=== PATIENT | female | born 1990 | race Caucasian/White ===

== ENCOUNTER 2017-03-24 18:45 | Emergency (ER) | payer MEDICAID ==
[~2017-03-24] VITALS: Ht 147.3 cm; Wt 133.8 kg
[~2017-03-24 18:45] MED LIST: AMOXICOT500 MG PO; FERROUS SULFAT324 MG PO; IBUPROFEN800 MG PO; LORATADINE 10MG10 M1 PO; MOTRIN 400MG.400 MG PO; MOTRIN400 MG PO; NORCO 325 MG-51 TAB PO; PERCOCET 5/3251 EACH PO; PRENATAL PLUS1 TA1 PO; PULMICORT180 MCG/AC IH; RANITIDINE HCL150 MG PO; VENTOLIN H0.09 MG/Ac IH; ZANTAC 150150 MG PO; ZITHROMAX Z PA250 MG PO; ZOFRAN ODT4 MG PO; ZOFRAN ODT8 MG PO
--- NOTE | 2017-03-24 19:24 | [facility] Report ---
History of Present Issue Date/Time Seen by Provider 03/24/171918 Visit Reason Pt arrived:Walked Presenting Problem:PT C/O RIGHT UPPER QUAD PAIN THAT GOES DOWN INTO HER RIBS, ADVISES SHE WAS SEEN EARLIER THIS WEEK AND HAD LABS WHICH WERE NORMAL. PT ADVISES SHE WAS SUPPOSE TO HAVE GB US YESTERDAY AND DIDN'T GO Location if Accident: Onset of symptoms date/time:/ or onset unknown for:MEDICAL HX UNKNOWN Have you (or family members/close friends) recently traveled outside the [place]? N If Yes, where/when: Have you had exposure to infectious disease within the past month? TB? Other? Specify: Source patient, RN notes reviewed Exam Limitations no limitations Comment 26-year-old female presents for RIGHT upper quadrant pain. Patient states she seen her PCP on Sunday and per her all labs were normal. She states she was scheduled for a gallbladder ultrasound yesterday but had to miss the appointment because she didn't have a ride or gas money to get the appointment. Patient states she was supposed to work today was unable to go to work due to RIGHT quadrant pain. Patient states she also is a week late on her menstrual cycle. Patient reports having "hot flashes", denies nausea or vomiting ALLERGIES Coded Allergies: Penicillins (Severe, I-HIVES 02/20/16) Home Medications Reported Medications Albuterol Sulfate (Ventolin Hfa) 0.09 MG IH DAILY #18 Budesonide (Pulmicort 180MCG Flexhaler) 1 PUFF IH DAILY #1 Loratadine (Loratadine 10MG Tablet) 10 MG PO DAILY History Medical History General CAD? No Angina: No AK: No Hypertension? No Hyperlipidemia? No CHF? No DVT? No PE? No COPD? No Asthma? Yes Anemia? No GERD? No Gastric ulcers? No GI Bleed? No Hernia? No Thyroid Problems? No Hypothyroidism? No CVA? No Seizures? No Diabetes? No Renal Insuffiency? No UTI? No Stones? No BPH? No GB Disease: No Nephritic Syndrome? No Asplenia? No Hepatitis? No Sickle Cell Disease? No Arthritis? No Migraines? No Cataracts? No Glaucoma? No MRSA? No HIV? No TB? No Anxiety? No Depression? No Cancer? No Site: N More? No Immunization HX DT/Tetanus 06/10/2015 Flu 2014-FSN Pneumonia Refuses Surgical Hx Previous Surgery?Y DENTAL ROOT CANAL TUBAL Social History Smoking Hx Smoker: Never Smoker Tobacco: No Packs/day N/A Alcohol Alcohol: No Review of Systems All Other Systems Reviewed and Negative Gastrointestinal see HPI, abdominal pain Physical Exam Vital Signs Vital Signs Date Time Temp Pulse Resp B/P Pulse O2 O2 Flow FiO2 Ox Delivery Rate 03/24 1901 98.4 87 16 130/70 98 - WBC >12,000 or <4,000 or 10% bands? 2 or more SIRS Criteria Met? B/P:130/70 MAP:90 Creatinine >2.0? UA output<0.5ml/kg/hr for 2 hrs? Platelet count >100,000? Lactate >2.0mmol/1? INR >1.2 or PTT > than 60 sec? Evidence of Organ Dysfunction? Provider documented clinical suspician of infection? Sepsis Criteria Count: 0 Sepsis Risk: General Appearance normal appearance, no apparent distress Eye Exam - bilateral eye normal exam, bilateral eye PERRL, bilateral eye EOMI Ear, Nose, Throat hearing grossly normal, normal ENT inspection, normal pharynx Neck normal inspection, full range of motion Respiratory Status Yes: trachea midline, chest symmetrical, non tender chest. No: respiratory distress. Lung Sounds bilateral: normal breath sounds, lungs clear. Cardiovascular normal exam, regular rate/rhythm, no peripheral edema, normal peripheral pulses Gastrointestinal normal bowel sounds, normal exam, soft, tenderness, Olea sign positive Neurologic alert, normal exam, oriented x 3 Medical Decision Making LABS/Meds/Orders Pt receiving controlled substance in ED? No Results/Orders Laboratory Tests 03/24/171999: Sodium 140, Potassium 3.7, Chloride 107, Carbon Dioxide 27, BUN 8, Creatinine 1.0, Estimated Creat Clear 183, Estimated GFR (MDRD) 68, Glucose 93, Calcium 8.4 L, Total Bilirubin 0.2, AST 31, ALT 58, Alkaline Phosphatase 77, Total Protein 7.6, Albumin 3.5, Globulin 4.1 H, Albumin/Globulin Ratio 0.9 L, Amylase 60, Lipase 195, WBC 5.1, RBC 5.02, Hgb 13.6, Hct 42.9, MCV 85.4, RDW 13.1, Plt Count 272, MPV 7.6, Gran % 52.2, Gran # 2.7, Lymphocytes % 31.9, Monocytes % 8.0, Eosinophils % 7.0, Basophils % 0.9, Lymphocytes # 1.6, Monocytes # 0.4, Eosinophils # 0.4, Basophils # 0.1, PUBS MCHC 31.6 L, MCH 27.0 03/24/171916: Urine Color YELLOW, Urine Appearance Clear, Urine pH 6.0, Ur Specific [place] > 1.030 H, Urine Protein NEGATIVE, Urine Ketones NEGATIVE, Urine Blood 2+ H, Urine Nitrate NEGATIVE, Urine Bilirubin NEGATIVE, Urine Urobilinogen 0.2, Ur Leukocyte Esterase NEGATIVE, Urine Glucose NEGATIVE, Urine Test NEGATIVE Orders Procedure Date/time Status [facility] URINE 03/24 1917 Complete UTC URINE DIPSTICK 03/24 1917 Complete LIPASE 03/24 1917 Complete CBC WITH AUTO DIFF 03/24 1917 Complete CHEM 12 PROFILE 03/24 1917 Complete AMYLASE 03/24 1917 Complete Consult MD Physician Consult Consult/PCP [email or web address] Time Called 1922 Reason Pt. Condition Comments Recommend complete blood count, complete metabolic panel amylase and lipase. If these are elevated then transferred to the ER for a ct scan scan Departure Departure Time of Disposition 2041 Disposition DC Home or Self Care(routine) Clinical Impression Primary Impression: Abdominal pain Qualifiers: Abdominal location: right upper quadrant Qualified Code: R10.11 - Right upper quadrant pain Condition STABLE Referrals KEVIN PITTMAN (Family) Patient Instructions Acute Abdominal Pain, DI for Abdominal Pain-Adult Additional Instructions Follow-up with PCP this week Call reschedule gallbladder ultrasound Stay away from greasy, spicy, or fatty foods Symptoms worsen or do not improve return or be seen in the ER Discharge Counseling Counseled pt/family regarding diagnosis, test results, medications/RX, home care, follow up needs at 204
[2017-03-24 19:44] LABS: UTC URINE PREGNANCY NEGATIVE (NEG)
[2017-03-24 19:45] LABS: URINE BILIRUBIN - DIPSTICK NEGATIVE (NEG); URINE BLOOD 2+ (NEG)
[2017-03-24 20:11] LABS: HEMOGLOBIN 13.6 g/dL (12.2-16.2); LYMPH # 1.6 K/mm3 (0.7-4.5); LYMPH % 31.9 % (10-50.0)
[2017-03-24 20:48] VITALS: BP 130/70
--- OUTSIDE RECORDS SUMMARY | 2017-03-25 05:26 | External Medical Summary Rpt | CCD ---
Author Author , STEPHANIE Organization [facility] Address Unknown Phone [email or web address] Care Team Providers Care Fitter And Turner Name Role Phone HARLEY SOUZA Unavailable Unavailable TALBOT INDY, Unavailable Unavailable TALBOT INDY MADRID ENA, MADRID Unavailable Unavailable ENA MADRID ENA, MADRID Unavailable Unavailable ENA [facility] Unavailable Unavailable [place], [facility] Unavailable Unavailable [place], [facility] Unavailable Unavailable [facility], Unavailable Unavailable NAUN Y[id number], Unavailable Unavailable [id number] CHRISTINA GREENE CHRISTINA JAM Unavailable Unavailable CHRISTINA JC, CHRISTINA JAM Unavailable Unavailable CHRISTINA GREENE CHRISTINA JAM Unavailable Unavailable PETAR VASQUEZ, Unavailable Unavailable PETAR VASQUEZ HOWELL M, Unavailable Unavailable SILVER TAM MD, Unavailable Unavailable GINNY RAMIREZ LIZ, JAMES LIZ Unavailable Unavailable JAMES LARSEN Unavailable Unavailable HARPEL KENDELL, HARPEL Unavailable Unavailable KENDELL HARPEL KENDELL, HARPEL Unavailable Unavailable KENDELL [facility] Un[facility] Un[facility], [facility], Unavailable Unavailable [facility] KALFAS MIN, KALFAS Unavailable Unavailable MIN KALFAS, SUSANNA C, Unavailable Unavailable KALFAS, SUSANNA C [facility] Unavailable Unavailable [facility], [facility] CHRISSIE JR, CHRISSIE JR Unavailable Unavailable FRANK CHRISSIE, Unavailable Unavailable FRANK CHRISSIE FRANK CHRISSIE NIEVES, Unavailable Unavailable FRANK CHRISSIE NIEVES [facility], Unavailable [facility]available [facility] Unavailable Unavailable LAB, [facility] Unavailable Unavailable [facility], [facility] Unavailable [facility]available [facility], [facility] Un[facility] AUDELIA KATERYNA, AUDELIA KATERYNA Unavailable Unavailable [facility], Unavailable Unavailable [facility] PICKLESIMER JR SUELLEN, Unavailable Unavailable PICKLESIMER JR SUELLEN RENUSCH, RENUSCH Unavailable Unavailable RENUSCH CHUCK, RENUSCH Unavailable Unavailable CHUCK [id number], Unavailable Unavailable [id number] SCHACK JF, SCHACK Unavailable Unavailable JF SCHACK JF, SCHACK Unavailable Unavailable JF SCHACK, MABEL, Unavailable Unavailable SCHACK, MABEL TOYA, TOYA Unavailable Unavailable TOYA SHASHANK, TOYA Unavailable Unavailable SHASHANK TOYA SHASHANK, TOYA Unavailable Unavailable SHASHANK KEVIN PITTMAN G, Unavailable Unavailable KEVIN PITTMAN [facility], Unavailable Unavailable [facility] Unavailable [facility]available Unavailable PHOTOGR[employer]IC [facility], 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available Unavailable [facility], [facility] Unavailable Unavailable [facility]ICIANS, [facility] THI VALLE, THI Unavailable Unavailable LEONARD PALACIOS, Unavailable Unavailable LIDIA WALKER, Unavailable Unavailable LIDIA MICHAEL [facility] Unavailable Unavailable #5, [facility] Purpose Continuity of Care Document - 07-22-2007 through 2016 Problems Code Diagnosis DOS Provider Status [id number] OTH SPEC 02-02-2017 ST BACTERIAL STEVEN AGNT CAUSE PHYSICIANS DZ CLASSIFIED ELSW [id number] MIGRAINE 02-02-2017 ST W/O AURA STEVEN NOT INTRACT PHYSICIANS W/O STAT MIGRAIN J0190 ACUTE 02-02-2017 ST SINUSITIS STEVEN UNSPECIFIED PHYSICIANS Z6841 BODY MASS 02-02-2017 ST INDEX BMI STEVEN 40.0-44.9 PHYSICIANS ADULT N912 AMENORRHEA 11-21-2016 [facility] R05 COUGH 10-15-2016 [facility] R0602 SHORTNESS 10-15-2016 [facility] OF BREATH PHYSICIANS, [facility] B349 VIRAL 06-14-2016 ST INFECTION [facility] UNSPECIFIED PHYSICIANS R1013 EPIGASTRIC 06-14-2016 ST PAIN [facility] PHYSICIANS J020 STREPTOCOCC 05-03-2016 [facility] J0300 ACUTE 05-03-2016 [facility]RE[facility] TONSILLITIS UNSPECIFIED H6693 OTITIS 02-20-2016 [facility] MEDIA [facility], UNSPECIFIED PLLC BILATERAL J0100 ACUTE 02-20-2016 [facility] MAXILLARY [facility], SINUSITIS PLLC UNSPECIFIED K027 DENTAL ROOT 02-20-2016 [facility] CARIES [facility] H5203 HYPERMETROP 12-29-2015 CHRISTINA GREENE IA BILATERAL J4520 MILD 10-15-2015 INTERMITTEN STEVEN T ASTHMA PHYSICIANS UNCOMPLICAT ED N390 URINARY 10-15-2015 ST TRACT [facility] INFECTION PHYSICIANS SITE NOT SPECIFIED R300 DYSURIA 10-15-2015 ST STEVEN PHYSICIANS N3001 ACUTE 10-06-2015 CYSTITIS [place] WITH PHYSICIANS HEMATURIA O3421 MATERNAL 06-07-2015 [facility] CARE SCAR PHYSICIANS PREVIOUS GROUP DELIVERY O655 OBSTRUCTED 06-07-2015 [facility] ABNORMAL INC MAT PELVIC ORGANS Z302 ENCOUNTER 06-07-2015 [facility] FOR PHYSICIANS STERJAMES GROUP ON Z370 SINGLE LIVE 06-07-2015 [facility] Z3A39 39 WEEKS 06-07-2015 [facility] GESTATION PHYSICIANS OF GROUP Z3480 ENC 05-27-2015 [facility] SUPERVISION PHYSICIANS OT NORMAL GROUP PREG UNS TRIMESTER Y31414 OTHER SPEC 05-22-2015 [facility] RELATED INC COND 3RD TRIMESTER O4703 FALSE LABOR 05-22-2015 GINNY Hung BEFORE 37 LILLIE MAC CMPLETE WEEKS GEST 3RD TRI Z3A37 37 WEEKS 05-22-2015 [facility] GESTATION [facility] OF INC X35382 OTHER ACUTE 05-11-2015 STEVEN NONSUPPURAT PHYSICIANS MELINA OTITIS MEDIA RT EAR J029 ACUTE 05-11-2015 ST PHARYNGITIS STEVEN PHYSICIANS UNSPECIFIED O6003 05-03-2015 [facility] LABOR PHYSICIANS WITHOUT GROUP DELIVERY THIRD TRIMESTER Z3A34 34 WEEKS 05-03-2015 [facility] OF INC P94930 ABNORMAL 04-30-2015 [facility] GLUCOSE PHYSICIANS COMPLICATIN GROUP G [id number] MATERNAL 04-26-2015 [facility] CARE EXCESS PHYSICIANS GROUP GROWTH 3RD TRI NA/UNS [id number] DECREASED 04-22-2015 [facility] MOVEMENTS INC THIRD TRIMESTER NA/UNS O4702 FALSE LABOR 04-22-2015 GINNY Hung BEFORE 37 LILLIE MAC CMPLETE WEEKS GEST 2ND TRI Z3A33 33 WEEKS 04-22-2015 [facility] OF INC V221 SUPERVISION 02-02-2015 [place] OF OTHER MEDICAL NORMAL [facility]ING ASS 70337 OTHER 12-08-2014 [facility] SPECIFED PHYSICIANS COMPLICATIO GROUP N ANTEPARTUM 4610 ACUTE 11-25-2014 ST MAXILLARY STEVEN SINUSITIS PHYSICIANS V222 11-25-2014 STATE, STEVEN INCIDENTAL PHYSICIANS V745 SCREENING 11-24-2014 [facility]ATION [facility] FOR VENEREAL DISEASE V2502 GENERAL 05-28-2014 [facility] CNSL PHYSICIANS INITIATION GROUP OTH CONTRACEPT MEASURES V2509 OT GENERAL 05-28-2014 [facility] PHYSICIANS CNSL&ADVICE GROUP CONTRACEPT MANAGEMENT V2542 SURVEILLANC 05-28-2014 [facility] E PREV PRSC PHYSICIANS INTRAUTERN GROUP CNTRACPT DEVC 33192 OBESITY, 05-19-2014 ST UNSPECIFIED STEVEN MED 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 [address] 1121 CANDIDIASIS 05-11-2014 ST OF VULVA STEVEN AND VAGINA PHYSICIANS 3829 UNSPECIFIED 05-11-2014 ST OTITIS [facility] MEDIA PHYSICIANS 4739 UNSPECIFIED 05-11-2014 ST SINUSITIS STEVEN PHYSICIANS 4779 ALLERGIC 05-11-2014 ST RHINITIS STEVEN CAUSE PHYSICIANS UNSPECIFIED 22149 ESOPHAGEAL 05-11-2014 ST REFLUX STEVEN PHYSICIANS 82504 MATERNAL 11-05-2013 [facility] MENTAL D/O COND/COMPLI CATION V2511 ENC FOR 10-10-2013 [facility] E[facility] INSERTION INTRAUTERIN E CONTRACEPT DEVICE 46422 PREV C/S 08-29-2013 [facility] DELIV [facility]IV [facility] W/WO INC MENTION ANTPRTM COND 41198 C/S DELIV 08-29-2013 HARPEL KENDELL W/O INDICAT DELIV W/WO ANTPRTM COND V270 OUTCOME OF 08-29-2013 [facility] DELIVERY [facility] SINGLE INC LIVEBORN 82287 THREATENED 08-20-2013 [facility] PREMATURE [facility] LABOR INC ANTEPARTUM 55153 EXCESS 08-12-2013 [facility] E[facility] GROWTH AFFECT MGMT MOTH ANTPRTM 44435 OTHER 08-05-2013 HARPEL KENDELL THREATENED LABOR, ANTEPARTUM 40469 ABNORMAL 07-11-2013 [facility] E[facility] MATERNAL GLUCOSE TOLERANCE ANTEPARTUM 87453 THREATENED 07-10-2013 [facility] PREMATURE CO LABOR AMBULANCE UNSPEC TAXIN EPIS CARE V283 ENCOUNTER 04-17-2013 J[facility] SUTHERLAND ROUTINE SCREEN MALFORMATIO N ULTRASONIC 19418 UNSPECIFIED 03-26-2013 [facility] SUTHERLAND VAGINITIS AND VULVOVAGINI TIS V242 ROUTINE 02-05-2012 PATHOLOGY & CYTOLOGY FOLLOW-UP LAB 01993 FETOPELVIC 01-02-2012 [facility] DISPROPORTI [facility] ON, INC DELIVERED 86370 OBSTRUCTION 01-02-2012 [facility] BY [facility] PELVIS INC DURING L&D DELIVERED 92405 UNSPECIFIED 01-02-2012 COMMUNITY FAILED ANESTH OF TRIAL OF THE BLUE LABOR DELIVERED 31301 OTHER AND 01-02-2012 [facility] UNSPECIFIED [facility] UTERINE INC INERTIA W/DELIVERY 01774 DECR 12-31-2011 [facility] ENA MOVMNTS MGMT MOTH ANTPRTM COND/COMP V220 SUPERVISION 12-08-2011 COMBINED OF NORMAL PHYSICIANS FIRST LA 6268 OTH D/O 08-01-2011 RAMIREZ LIZ MENSTRUATIO N&OTH ABN BLEED FE GNT TRACT 18862 UNSPEC 08-01-2011 [facility] HEMORRHAGE [facility] EARLY INC ANTEPARTUM 4659 ACUTE URIS 07-12-2011 TOYA SHASHANK OF UNSPECIFIED SITE 98529 UNSPECIFIED 07-12-2011 TOYA SHASHANK CONSTIPATIO N 36589 NAUSEA 07-04-2011 SCHACK JF ALONE V7231 ROUTINE 06-28-2011 PATHOLOGY & GYNECOLOGIC CYTOLOGY AL LAB EXAMINATION 5368 DYSPEPSIA&O 06-19-2011 TOYA SHASHANK THER SPEC DISORDERS FUNCTION STOMACH 6260 ABSENCE OF 06-13-2011 SCHACK JF MENSTRUATIO N 2859 UNSPECIFIED 05-24-2011 [place] [address] OTHER 05-24-2011 ST MALAISE AND STEVEN [facility] V2501 GENERAL 05-24-2011 TOYA SHASHANK COUNSELING PRESCRIPTIO N ORAL CONTRACEPTS 5693 HEMORRHAGE 04-14-2011 TOYA SHASHANK OF RECTUM AND ANUS 10256 URINARY 04-14-2011 TOYA SHASHANK FREQUENCY V0489 NEED PROPH 01-05-2011 ST VACCINATION STEVEN &INOCULAT PHYSICIANS OT VIRAL DZ V741 SCREENING 11-04-2010 [facility] EXAMINATION [facility] P[facility]MON[facility] TUBERCULOSI S 4619 ACUTE 09-01-2010 ST SINUSITIS, STEVEN UNSPECIFIED PHYSICIANS 81820 ABDOMINAL 09-01-2010 ST PAIN, STEVEN UNSPECIFIED PHYSICIANS SITE 6235 LEUKORRHEA 06-15-2010 NOT [place] SPECIFIED PHYSICIANS INFECTIVE V202 ROUTINE 06-15-2010 INFANT OR [place] CHILD PHYSICIANS HEALTH CHECK 6264 IRREGULAR 04-19-2010 MENSTRUAL [place] CYCLE PHYSICIANS 7881 DYSURIA 04-19-2010 [facility] PHYSICIANS 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 3670 HYPERMETROP 12-08-2009 NNEKA VASQUEZ 6829 CELLULITIS 09-09-2009 [facility] OF GROUP UNSPECIFIED SITE 5990 URINARY 08-04-2009 TRACT [place] INFECTION PHYSICIANS SITE NOT SPECIFIED 4871 INFLUENZA 03-10-2009 PATIENT WITH OTHER FIRST PHYS RESPIRATORY MANIFESTATI ONS 7099 UNSPECIFIED 08-19-2008 PATIENT DISORDER FIRST PHYS OF SKIN&SUBCUT ANEOUS TISSUE V0389 NEED PROPH 01-10-2008 PATIENT VACC FIRST PHYS AGAINST OTH SPEC VACC 35503 ASTHMA 10-24-2007 PATIENT UNSPECIFIED FIRST PHYS WITH EXACERBATIO N 0340 STREPTOCOCC 09-09-2007 PATIENT AL SORE FIRST PHYS THROAT 26004 UNSPECIFIED 07-22-2007 PATIENT VIRAL FIRST PHYS INFECTION IN CCE & UNS SITE Medications Na ND Rx Da Fi Fi Am Da Di Ph RX Ph St me C No te ll ll ou ys ag ar # ys at rm s nt no ma ic us Or Da si cy ia de te s n re d CE 16 08 09 30 30 00 TO Ac TI 71 -2 -2 .0 00 TA ti RI 40 5- 9- 00 00 L ve ZI 27 20 20 96 CA NE 10 17 17 00 RE 3 31 HC PH L AR 10 MA CY MG #5 TA BL ET AM 66 08 09 20 10 00 TO Ac OX 68 -2 -2 .0 00 TA ti -C 51 5- 9- 00 00 L ve LA 00 20 20 96 CA V 10 17 17 00 RE 87 0 32 5- PH 12 AR 5 MA MG CY TA #5 BL ET LA 00 08 09 60 30 00 TO Ac OP 60 -2 -2 .0 00 TA ti RA 35 5- 9- 00 00 L ve NO 48 20 20 96 CA LO 23 17 17 00 RE L 2 36 10 PH AR MG MA CY TA BL #5 ET FL 16 08 09 1. 1 00 TO Ac UC 71 -0 -0 00 00 TA ti ON 40 8- 8- 0 00 L ve AZ 69 20 20 95 CA OL 21 17 17 83 RE E 1 16 15 PH 0 AR MG MA CY TA BL #5 ET LO 16 08 09 30 30 00 TO RA 71 -0 -0 .0 00 TA ti TA 40 8- 8- 00 00 L ve DI 48 20 20 92 CA NE 20 17 17 86 RE 3 03 10 PH AR MG MA CY TA BL #5 ET FL 16 06 07 1. 1 00 TO [facility] 71 -2 -2 00 00 TA ti ON 40 6- 8- 0 00 L ve AZ 69 20 20 95 CA OL 21 17 17 43 RE E 1 58 15 PH 0 AR MG MA CY TA BL #5 ET VE 00 04 05 18 25 00 TO NT 17 -2 -2 .0 00 TA ti OL 30 4- 6- 00 00 L ve IN 68 20 20 91 CA 22 17 17 46 RE HF 0 85 A PH 90 AR MA MC CY G IN #5 CLEMENTS LE R PU 00 04 05 1. 31 00 TO LM 18 -2 -2 00 00 TA ti IC 60 4- 6- 0 00 L ve OR 91 20 20 91 CA T 61 17 17 46 RE 18 2 87 0 PH MC AR G MA FL CY EX CLEMENTS #5 LE R LO 16 04 05 30 30 00 TO [facility] 71 -2 -2 .0 00 TA ti TA 40 4- 6- 00 00 L ve DI 48 20 20 92 CA NE 20 17 17 86 RE 3 03 10 PH AR MG MA CY TA BL #5 ET FL 16 02 03 1. 1 00 TO [facility] 71 -1 -1 00 00 TA ti ON 40 5- 7- 0 00 L ve AZ 69 20 20 94 CA OL 21 17 17 16 RE E 1 25 15 PH 0 AR MG MA CY TA BL #5 ET RA 53 01 02 60 30 00 TO NI 74 -0 -1 .0 00 TA ti TI 60 5- 0- 00 00 L ve DI 25 20 20 93 CA NE 31 17 17 75 RE 0 80 15 PH 0 AR MG MA CY TA BL #5 ET FL 16 12 01 2. 2 00 TO UC 71 -2 -2 00 00 TA ti ON 40 0- 0- 0 00 L ve AZ 69 20 20 93 CA OL 21 16 17 61 RE E 1 08 15 PH 0 AR MG MA CY TA BL #5 ET 00 01 09 11 28 28 75 SC Ac 43 -0 -2 .0 21 CLEMENTS ti 00 5- 0- 00 46 FE ve 53 20 20 R 01 11 11 AR 4 CH AE L G 00 08 08 0 14 7 77 SC Ac 14 -3 -3 .0 25 CLEMENTS ti 31 0- 0- 00 00 CK ve 47 20 20 31 11 11 BR 0 IA N 00 01 08 11 28 28 75 SC Ac 43 -0 -2 .0 21 CLEMENTS ti 00 46 FE ve 53 20 20 R 01 11 11 AR 4 CH AE L G LO 51 05 08 3 90 90 76 SC Ac RA 66 -0 -2 .0 33 CLEMENTS ti TA 00 18 FE ve DI 52 20 20 R NE 60 11 11 AR 5 CH 10 AE L MG G TA BL ET 00 07 11 28 28 75 SC Ac 43 -0 -2 .0 21 CLEMENTS ti 00 46 FE ve 53 20 20 R 01 11 11 AR 4 CH AE L G ME 50 07 07 0 14 7 76 SC Ac TR 11 -2 -2 .0 98 CLEMENTS ti ON 10 26 FE ve ID 33 20 20 R AZ 40 11 11 AR OL 1 CH E AE 50 L 0 G MG TA BL ET FL 00 07 07 0 1. 1 76 SC Ac UC 17 -2 -2 00 98 CLEMENTS ti ON 25 8- 0 27 FE ve AZ 41 20 20 R OL 21 11 11 AR E 1 CH 15 AE 0 L MG G TA BL ET 00 01 06 11 28 28 75 SC Ac 43 -0 -2 .0 21 CLEMENTS ti 00 46 FE ve 53 20 20 R 01 11 11 AR 4 CH AE L G FL 00 05 05 6 16 30 76 SC Ac UT 05 -0 -0 .0 33 CLEMENTS ti IC 43 17 FE ve 27 20 20 R ON 09 11 11 AR E 9 CH LA AE OP L G 50 MC G SP RA Y LO 51 05 05 3 90 90 76 SC Ac RA 66 -0 -0 .0 33 CLEMENTS ti TA 00 18 FE ve DI 52 20 20 R NE 60 11 11 AR 5 CH 10 AE L MG G TA BL ET AZ 59 05 05 0 6. 5 76 SC Ac IT 76 -0 -0 00 33 CLEMENTS ti HR 23 9- 9- 0 19 FE ve OM 06 20 20 R YC 00 11 11 AR IN 1 CH AE 25 L 0 G MG TA BL ET 00 01 04 11 28 28 75 SC Ac 43 -0 -1 .0 21 CLEMENTS ti 00 5 46 FE ve 53 20 20 R 01 11 11 AR 4 CH AE L G FL 00 04 04 0 1. 1 76 SC Ac UC 17 -0 -0 00 05 CLEMENTS ti ON 25 5- 5- 0 20 CK ve AZ 41 20 20 OL 21 11 11 BR E 1 IA 15 N 0 MG TA BL ET HOFFMANN 00 03 03 0 14 14 75 KLEVER Ac LF 60 -2 -2 .0 95 CLEMENTS ti AM 35 - 00 04 NA ve ET 78 20 20 N HO 02 11 11 PE XA 1 RR ZO Y LE K -T MP SS TA BL ET 00 01 03 11 28 28 75 SC Ac 43 -0 -1 .0 21 CLEMENTS ti 00 46 FE ve 53 20 20 R 01 11 11 AR 4 CH AE L G 00 01 02 11 28 28 75 SC Ac 43 -0 -1 .0 21 CLEMENTS ti 00 46 FE ve 53 20 20 R 01 11 11 AR 4 CH AE L G FL 00 01 01 0 1. 1 75 SC Ac UC 17 -0 -0 00 21 CLEMENTS ti ON 25 5- 5- 0 47 FE ve AZ 41 20 20 R OL 21 11 11 AR E 1 CH 15 AE 0 L MG G TA BL ET ME 50 01 01 0 21 7 75 SC Ac TR 11 -0 -0 .0 21 CLEMENTS ti ON 10 43 FE ve ID 33 20 20 R AZ 40 11 11 AR OL 1 CH E AE 50 L 0 G MG TA BL ET 00 01 01 11 28 28 75 SC Ac 43 -0 -0 .0 21 CLEMENTS ti 00 5- 5 00 46 FE ve 53 20 20 R 01 11 11 AR 4 CH AE L G FL 00 06 06 0 1. 1 73 SC Ac UC 17 -0 -0 00 43 CLEMENTS ti ON 25 3- 3- 0 08 FE ve AZ 41 20 20 R OL 21 10 10 AR E 1 CH 15 AE 0 L MG G TA BL ET ME 50 06 06 0 14 7 73 SC Ac TR 11 -0 -0 .0 43 CLEMENTS ti ON 10 3- 00 09 FE ve ID 33 20 20 R AZ 40 10 10 AR OL 1 CH E AE 50 L 0 G MG TA BL ET AV 00 04 04 0 7. 7 72 SC Ac EL 08 -0 -0 00 92 CLEMENTS ti OX 51 1- 1- 0 32 CK ve 73 20 20 40 30 10 10 BR 0 1 IA MG N TA BL ET TR 00 11 11 00 12 3 RI 80 RU Ac AM 09 -0 -1 .0 TE 70 SH ti AD 30 3- 9- 00 31 ve OL 05 20 20 AI NE 80 09 09 D IL HC 1 PH C L AR 50 M #3 MG 93 8 TA BL ET TA 00 09 10 00 10 5 CV 50 KA Ac AR 00 -3 -0 .0 S 75 LF ti FL 40 0- 8- 00 PH 31 ve U 80 20 20 AR 75 08 09 09 MA AR 5 CY NA MG C #5 CA 43 PS 7 UL E AZ 00 08 09 00 6. 4 TO 71 SC Ac IT 78 -2 -1 00 TA 03 CLEMENTS ti HR 11 8- 0- 0 L 95 CK ve OM 49 20 20 CA YC 66 09 09 RE BR IN 8 IA PH N 25 AR 0 MA MG CY TA #5 BL ET HOFFMANN 00 03 03 00 20 10 TO 66 SC Ac LF 60 -1 -2 .0 TA 79 CLEMENTS ti AM 35 1- 6- 00 L 61 CK ve ET 78 20 20 CA HO 12 09 09 RE BR XA 8 IA ZO PH N LE AR -T MA MP CY DS #5 TA BL ET TR 65 09 09 00 12 3 PH 65 RU Ac AM 16 -0 -2 .0 AR 28 SH ti AD 20 9- 6- 00 MC 69 ve OL 62 20 20 AR NE 71 08 08 E IL HC 1 PH C L AR 50 MA CY MG TA BL ET 00 05 07 01 0. 14 PH 64 SC Ac 08 -1 -0 24 AR 51 CLEMENTS ti 51 5- 3- 0 MC 49 CK ve 34 20 20 AR 10 08 08 E BR 3 PH IA AR N MA CY 17 05 05 00 17 25 TO 64 No Ac 27 -1 -2 .0 TA 51 t ti 00 5- 2- 00 L 50 Av ve 72 20 20 CA ai 10 08 08 RE la 1 bl PH e AR MA CY #5 00 05 05 00 0. 30 TO 64 No Ac 08 -1 -2 24 TA 51 t ti 51 5- 2- 0 L 49 Av ve 34 20 20 CA ai 10 08 08 RE la 3 bl PH e AR MA CY #5 NA 00 02 04 01 17 30 PH 63 No Ac SO 08 -1 -2 .0 AR 79 t ti NE 51 1- 4- 00 MC 86 Av ve X 28 20 20 AR ai 50 80 08 08 E la 1 PH bl MC AR e G MA NA CY SA L SP RA Y 63 03 04 00 14 7 PH 64 No Ac 30 -3 -1 .0 AR 17 t ti 40 1- 0- 00 MC 29 Av ve 71 20 20 AR ai 32 08 08 E la 0 PH bl AR e MA CY NA 00 02 03 00 17 30 PH 63 No Ac SO 08 -1 -2 .0 AR 79 t ti NE 51 1- 6- 00 MC 86 Av ve X 28 20 20 AR ai 50 80 08 08 E la 1 PH bl MC AR e G MA NA CY SA L SP RA Y Immunization Name Date Rout CVX Reac Dose Comm Prov Is Faci e tion ent ider Refu lity Give sed n 4VHP 07-[address] V 8-20 RAIN ANDREW VACC 11 SHASHANK ABET INE H 3 PHYS DOSE ICIA NS SCHE DULE FOR IM USE 4VHP 03-[address] V 8-20 ANDREW VACC 11 MIN ABET INE H 3 PHYS DOSE ICIA NS SCHE DULE FOR IM USE 4VHP 01-[address] V 5-20 RAIN ANDREW VACC 11 SHASHANK ABET INE H 3 PHYS DOSE ICIA NS SCHE DULE FOR IM USE MCV4 08-0 114 Meni SCHA No NELSY 1-20 margie RAIN, ENT BARTON 08 occu FIRS CWY s DEMARIO T CONJ vacc AEL PHYS ine G VACC admi nist GRPS ered ; ACYW form -135 ulat IM ion USE not spec ifie d. MCV4 08-0 136 Meni SCHA No NELSY 1-20 margie RAIN, ENT BARTON 08 occu FIRS CWY s DEMARIO T CONJ vacc AEL PHYS ine G VACC admi nist GRPS ered ; ACYW form -135 ulat IM ion USE not spec ifie d. Procedures Procedure DOS Code Location Performer Comment [place] PIN 7 [facility] [place] [address] Y[facility] DI[facility] TROPONIN 7 [facility] QUANTITAT INC INC MELINA URNLS DIP 12170 [facility]O 7 [facility] STICK/TAB INC INC LET REAGENT AUTO MICROSCOP Y URINE 32339 [facility]O 7 [facility] TEST INC INC VISUAL COLOR CMPRSN METHS BLOOD 33064 [facility] COUNT 7 [facility] COMPLETE INC INC AUTO&AUTO DIFRNTL WBC CREATINE 58388 YOEL YOEL KINASE MB 7 MEM HOS[facility] FRACTION INC INC ONLY ECG 36129 [facility] ROUTINE 7 [facility] ECG INC INC W/LEAST 12 LDS TRCG ONLY W/O I&R FIBRIN 94365 [facility] DGRADJ 7 [facility] PRODUCTS INC INC D-DIMER QUAL/SEMI RUTH CREATINE 93969 [facility] KINASE 7 MEM HOSP [facility] TOTAL INC INC COMPREHEN 79931 [facility] SIVE 7 [facility] METABOLIC INC INC PANEL RADIOLOGI 65617 [facility] C EXAM 7 MEDICAL CHEST 2 IMAGING VIEWS ASS FRONTAL&L ATERAL ECG 14140 YO[facility] DICKENS JR ROUTINE 7 [facility] W/LEAST P 12 LDS I&R ONLY IAADI 42969 [facility] DIALLO INFLUENZA 6 [facility] B VIRUS INC INC IAADI 75462 [facility] DI[facility]O INFFLUENZ 6 [facility] [place] [address] YOEL DIALLO STREPTOCO 6 MEM H[facility] CCUS INC INC GROUP A OPHTH 22685 CHRISTINA GREENE MEDICAL 6 XM&EVAL COMPRE NEW PT 1/> VST DETERMINA 91728 CHRISTINA GREENE TION 6 REFRACTIV E STATE SUSCEPTIB [address] LTY STDY 6 STEVEN STEVEN ANTIMICRB MED CTR MED CTR IAL PHOTOGRAPHIC RESTORER ST PHOTOGRAPHIC RESTORER ST MICRO/AGA R DILUTJ CULTURE [address] [facility] [address] [facility] QUANTTATI PHOTOGRAPHIC RESTORER ST PHOTOGRAPHIC RESTORER ST VE COLONY COUNT URINE CULTURE [address] BCT 6 STEVEN STEVEN ISOL&PRSM MED CTR MED CTR PTV ID PHOTOGRAPHIC RESTORER ST PHOTOGRAPHIC RESTORER ST ISOLATE EA URINE CULTURE [address] BCT 6 STEVEN STEVEN ISOL&PRSM MED CTR MED CTR PTV ID PHOTOGRAPHIC RESTORER ST PHOTOGRAPHIC RESTORER ST ISOLATE EA URINE CULTURE [address] [facility] [address] [facility] CTR QUANTTATI PHOTOGRAPHIC RESTORER ST PHOTOGRAPHIC RESTORER ST VE COLONY COUNT URINE SUSCEPTIB [address] LTY STDY 6 [facility] ANTIMICRB MED CTR MED CTR IAL PHOTOGRAPHIC RESTORER ST PHOTOGRAPHIC RESTORER ST MICRO/AGA R DILUTJ ANESTHESI 53202 [facility] A 5 ANESTH LEONARD OF THE DELIVERY BLUE ONLY LIG/TRNSX 27171 [facility] J 5 PHYSICIAN PHYSICIAN FALOPIAN S GROUP S GROUP TUBE DEL/ABDML SURG 66461 [facility] SCHULSTAD DELIVERY 5 PHYSICIAN CAM ONLY S GROUP 17126 [facility] MADRID DELIVERY 5 PHYSICIAN ENA ONLY S GROUP W/POSTPAR JOLLY CARE EXTRACTIO [id number] [facility] N PRODUCT 5 [facility] OF INC INC CONCEPTIO N LOW CERVICAL OP OCCLUSION [id number] [facility] DANO 5 [facility] FALLOPIAN INC INC TUBES EXTRALUM DEV OPEN 65394 [facility] NONSTRESS 5 [facility] TEST INC INC URNLS DIP 69708 [facility] STICK/TAB INC INC LET REAGENT AUTO MICROSCOP Y PARTICLE 90028 [facility] AGGLUTINA 5 [facility] TION INC INC SCREEN EACH ANTIBODY IAADIADOO [address]136 ST [facility] 5 STEVEN INDY [place]OC[place] [address] [facility] INFUSION 5 [facility] THERAPY/P INC INC ROPHYLAXI S /DX 1ST TO 1 HR URNLS DIP 16630 [facility] STICK/TAB INC INC LET REAGENT AUTO MICROSCOP Y FTL 71997 [facility] FIBRONECT 5 [facility] IN INC INC CERVICOVA G SECRETION S SEMI-RUTH 62868 [facility] MADRID NONSTRESS 5 PHYSICIAN ENA TEST S GROUP CULTURE 40208 [facility] BACTERIAL 5 [facility] INC INC QUANTTATI VE COLONY COUNT URINE GLUCOSE 33120 [facility] POST 5 PHYSICIAN PHYSICIAN GLUCOSE S GROUP S GROUP DOSE US PREG 76265 [facility] UTERUS 5 PHYSICIAN ENA REAL TIME S GROUP F/U TRNSABDL PER FETUS DOPPLER 68554 [facility] VELOCIMET 5 PHYSICIAN ENA RY S GROUP UMBILICAL ARTERY 22236 [facility] BIOPHYSIC 5 PHYSICIAN ENA AL S GROUP PROFILE W/[place] [address] [facility] INFUSION 5 [facility] THERAPY/P INC INC ROPHYLAXI S /DX 1ST TO 1 HR FTL 86036 [facility] FIBRONECT 5 [facility] IN INC INC CERVICOVA G SECRETION S SEMI-RUTH URNLS DIP 85188 [facility] 5 [facility] STICK/TAB INC INC LET REAGENT AUTO MICROSCOP Y CULTURE 39231 [facility] BACTERIAL 5 [facility] INC INC QUANTTATI VE COLONY COUNT URINE 56653 [facility] MOREIRA NONSTRESS 5 LILLIE MAC KENDELL TEST US PREG 57560 [facility] UTERUS 5 [facility] W/DETAIL INC INC [place]STATION [place] PREG 13628 [place] [facility] UTERUS 5 MEDICAL YUNG AFTER 1ST IMAGING TRIMEST [place] PREG 28260 [facility] UTERUS 5 PHYSICIAN ENA REAL TIME S GROUP W/IMAGE DCMTN TRANSVAG IADNA 52604 [facility], PICKLESIM CHLAMYDIA 5 LLC ER JR SUELLEN TRACHOMAT IS AMPLIFIED PROBE TQ CYTP C/V 23579 [facility], [facility] JR SUELLEN LYR PREPJ SCR MNL RESCR PHYS IADNA 99631 [facility], [facility] NEISSERIA [facility] ER JR SUELLEN GONORRHOE AE AMPLIFIED PROBE TQ COLLECTIO 08820 [facility] N VENOUS 5 [facility] BLOOD INC INC VENIPUNCT URE INF AGT G0432 Y[facility]EL DIALLO AB DETECT 5 [facility] EIA TECH INC INC HIV-1&/HI V-2 SCR OBSTETRIC 47604 YOELANDRZEJ DIALLO PANEL 5 [facility] INC INC REMOVAL 41212 [facility] JULIUS INTRAUTER 4 PHYSICIAN ENA INE S GROUP DEVICE IUD BASIC [address] METABOLIC 4 STEVEN STEVEN PANEL MED CTR MED CTR CALCIUM PHOTOGRAPHIC RESTORER ST PHOTOGRAPHIC RESTORER ST TOTAL LIPID [address] PANEL 4 STEVEN STEVEN MED CTR MED 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 [place] [address] THYROID 4 STEVEN STEVEN STIMULATI MED CTR MED CTR NG PHOTOGRAPHIC RESTORER ST PHOTOGRAPHIC RESTORER ST HORMONE TSH URINE 51889 JULIUS MADRID 4 ENA ENA TEST VISUAL COLOR CMPRSN METHS INSERTION 55816 JULIUS MADRID 4 ENA ENA INTRAUTER INE DEVICE IUD LEVONORGE J7302 JULIUS MADRID STREL-RLS 4 ENA ENA E INTRAUTER N CNTRACPT 52 MG LOW 741 YOEL DIALLO CERVICAL 4 [facility] INC INC SECTION 31632 HARPEL HARPEL DELIVERY 4 KENDELL KENDELL ONLY 76556 JULIUS MADRID DELIVERY 4 ENA ENA ONLY W/POSTPAR JOLLY CARE 56287 JULIUS MADRID NONSTRESS 4 ENA ENA TEST IAADI 12332 YOEL DIALLO INFFLUENZ 4 [facility] A A VIRUS INC INC IAADI 66221 YOEL DIALLO INFLUENZA 4 [facility] B VIRUS INC INC EVAL C/V 89363 YOEL DIALLO AMNIOTIC 4 [facility] FLUID [place] [address] YOEL DIALLO INFUSION 4 [facility] THERAPY/P INC INC ROPHYLAXI S /DX 1ST TO 1 HR URNLS DIP 27644 YOEL YOEL 4 [facility] STICK/TAB INC INC LET REAGENT AUTO MICROSCOP Y US PREG 89790 JULIUS MADRID UTERUS 4 ENA ENA REAL TIME F/U TRNSABDL PER FETUS DOPPLER 20404 JULIUS MADRID VELOCIMET 4 ENA ENA RY UMBILICAL ARTERY 20438 JULIUS MADRID BIOPHYSIC 4 ENA ENA AL PROFILE W/O NON-STRES S TESTING 56763 JULIUS MADRID NONSTRESS 4 ENA ENA TEST CUL BACT 46666 COMBINED COMBINED XCPT 4 PHYSICIAN PHYSICIAN URINE S LA S LA BLOOD/STO OL AEROBIC ISOL 23827 HARPEL HARPEL NONSTRESS 4 KENDELL KENDELL TEST EVAL C/V 12280 YOEL DIALLO AMNIOTIC 4 [facility] FLUID INC INC PROTEIN QUAL EA SPECIMEN URNLS DIP 83119 YOEL DIALLO 4 [facility] STICK/TAB INC INC LET REAGENT AUTO MICROSCOP Y URNLS DIP 92380 YOEL DIALLO 4 [facility] STICK/TAB INC INC LET REAGENT AUTO MICROSCOP Y FTL 70075 YOEL DIALLO FIBRONECT 4 [facility] IN INC INC CERVICOVA G SECRETION S SEMI-RUTH EVAL C/V 83904 YOEL DIALLO AMNIOTIC 4 [facility] FLUID INC INC PROTEIN QUAL EA SPECIMEN 65434 YOEL DIALLO NONSTRESS 4 [facility] TEST INC INC GLUCOSE 17307 JULIUS MADRID TOLERANCE 4 ENA ENA TEST GTT 3 SPECIMENS THERAPEUT 56647 YOEL DIALLO IC 4 [facility] PROPHYLAC INC INC TIC/DX INJECTION SUBQ/IM COLLECTIO 19369 JULIUS MADRID N 4 ENA ENA CAPILLARY BLOOD SPECIMEN GROUND A0425 EVER EVER MILEAGE 4 CO CO PER AMBULANCE AMBULANCE STATUTE TAXIN TAXIN MILE AMBULANCE A0429 EVER EVER SERVICE 4 CO CO BLS AMBULANCE AMBULANCE EMERGENCY TAXIN TAXIN TRANSPORT EVAL C/V 78502 YOEL DIALLO AMNIOTIC 4 [facility] FLUID [place] [address] YOEL DIALLO INFUSION 4 [facility] THERAPY/P INC INC ROPHYLAXI S /DX 1ST TO 1 HR FTL 05220 YOEL DIALLO FIBRONECT 4 [facility] IN INC INC [place]ERVIC[place] [address] YOEL DIALLO INFUSION 4 [facility] THERAPY INC INC PROPHYLAX IS/DX EA HOUR URNLS DIP 48416 YOEL DIALLO 4 [facility] STICK/TAB INC INC LET REAGENT AUTO MICROSCOP Y THERAPEUT 53259 YOEL DIALLO IC 4 [facility] PROPHYLAC INC INC TIC/DX INJECTION SUBQ/IM 05135 JULIUS MADRID NONSTRESS 4 ENA ENA TEST CULTURE 07907 YOEL DIALLO BACTERIAL 4 [facility] INC INC QUANTTATI VE COLONY COUNT URINE CULTURE 06467 YOEL DIALLO BACTERIAL 3 [facility] INC INC QUANTTATI VE COLONY COUNT URINE 03225 YOEL DIALLO NONSTRESS 3 [facility] TEST INC INC URNLS DIP 77058 YOEL DIALLO 3 [facility] STICK/TAB INC INC LET REAGENT AUTO MICROSCOP Y FTL 94857 YOEL DIALLO FIBRONECT 3 [facility] IN INC INC CERVICOVA G SECRETION S SEMI-RUTH URNLS DIP 06298 YOEL DIALLO 3 [facility] STICK/TAB INC INC LET REAGENT AUTO MICROSCOP Y 90676 YOEL DIALLO NONSTRESS 3 [facility] TEST INC INC US PREG 71455 JULIUS MADRID UTERUS 3 ENA ENA AFTER 1ST TRIMEST GESTATION SMR PRIM 60758 JULIUS MADRID SRC WET 3 ENA ENA MOUNT NFCT AGT US PREG 84113 WOMEN'S MADRID UTERUS 3 HEALTH ENA REAL TIME CLINIC OF W/IMAGE SAROJ DCMTN TRANSVAG ANTIBODY 75915 COMBINED COMBINED CHLAMYDIA 3 PHYSICIAN PHYSICIAN S LA S LA CUL BACT 97534 COMBINED COMBINED XCPT 3 PHYSICIAN PHYSICIAN URINE S LA S LA BLOOD/STO OL AEROBIC ISOL CYTP C/V 78673 PATHOLOGY PICKLESIM AUTO THIN 2 & ER JR SUELLEN LYR CYTOLOGY PREPJ SCR LAB MNL RESCR PHYS 28942 HARPEL HARPEL DELIVERY 2 KENDELL KENDELL ONLY NEURAXIAL 48978 [facility] AUDELIA KATERYNA LABOR 2 ANESTH ANALG/ANE OF THE S PLND BLUE VAGINAL DELIVERY ANES 80249 [facility] THI CESARN 2 ANESTH LEONARD DLVR FLWG OF THE BLUE NEURAXIAL LABOR ANALG/ANE S 81114 [facility] MADRID DELIVERY 2 ENA ENA ONLY W/POSTPAR JOLLY CARE LOW 741 YOEL DIALLO CERVICAL 2 [facility] INC INC SECTION 81310 JULIUS MADRID NONSTRESS 2 ENA ENA TEST CUL BACT 49390 COMBINED COMBINED XCPT 2 PHYSICIAN PHYSICIAN URINE S LA S LA BLOOD/STO OL AEROBIC ISOL 84117 HARPEL HARPEL NONSTRESS 2 KENDELL KENDELL TEST AMBULANCE A0429 EVER EVER SERVICE 2 CO CO BLS AMBULANCE AMBULANCE EMERGENCY TAXIN TAXIN TRANSPORT GROUND A0425 EVER EVER MILEAGE 2 CO CO PER AMBULANCE AMBULANCE STATUTE TAXIN TAXIN MILE GLUCOSE 49797 JULIUS MADRID TOLERANCE 2 ENA ENA TEST GTT 3 SPECIMENS 73958 HARPEL HARPEL NONSTRESS 2 KENDELL KENDELL TEST US PREG 66604 JULIUS MADRID UTERUS 2 ENA ENA AFTER 1ST TRIMEST GESTATION BLOOD 32415 YOEL DIALLO COUNT 2 [facility] COMPLETE INC INC AUTO&AUTO DIFRNTL WBC URNLS DIP 37157 YOEL DIALLO 2 [facility] STICK/TAB INC INC LET REAGENT AUTO MICROSCOP Y BASIC 73627 YOEL DIALLO METABOLIC 2 [facility] PANEL INC INC CALCIUM TOTAL GONADOTRO 36723 YOEL DIALLO PIN 2 [facility] CHORIONIC INC INC QUANTITAT MELINA GONADOTRO 41271 YOEL DIALLO PIN 2 [facility] CHORIONIC [place] [address] YOEL DIALLO ESTRIOL 2 [facility] INC INC ALPHA-FET 42749 YOEL DIALLO OPROTEIN 2 [facility] SERUM INC INC US PREG 13518 JULIUS MADRID UTERUS 2 ENA ENA REAL TIME W/IMAGE DCMTN TRANSVAG IADNA 50003 PATHOLOGY PICKLESIM CHLAMYDIA 2 & ER JR SUELLEN CYTOLOGY TRACHOMAT LAB IS AMPLIFIED PROBE TQ CYTP C/V 30427 PATHOLOGY PICKLESIM AUTO THIN 2 & ER JR SUELLEN LYR CYTOLOGY PREPJ SCR LAB MNL RESCR PHYS IADNA 18158 PATHOLOGY PICKLESIM NEISSERIA 2 & ER JR SUELLEN CYTOLOGY GONORRHOE LAB AE AMPLIFIED PROBE TQ URINE 70711 MARIN FUNES 2 JF JF TEST VISUAL COLOR CMPRSN METHS CYANOCOBA 67215 [facility] FLAKO 1 [facility] VITAMIN B-12 [place] [address] [facility] THYROID 1 [facility] STIMULATI NG MEDICAL MEDICAL[place] [address] [facility] FOLIC 1 [facility] ACID SERUM [place] [address] [facility] IRON 1 [facility] MEDICAL MEDICALCE NTER NTER COLLECTIO 71107 TOYA PITTMAN N VENOUS 1 SHASHANK SHASHANK BLOOD VENIPUNCT URE IRON 52962 [facility] BINDING 1 [facility] CAPACITY MEDICALCE MEDICALCE NTER NTER BLOOD 49786 [facility] COUNT 1 [facility] COMPLETE AUTO&AUTO MEDICALCE MEDICALCE DIFRNTL NTER NTER WBC URNLS DIP 71643 TOYA PITTMAN 1 SHASHANK SHASHANK STICK/TAB LET RGNT NON-AUTO W/O MICRSCP THERAPEUT 56423 TOYA PITTMAN IC 1 SHASHANK SHASHANK PROPHYLAC TIC/DX INJECTION SUBQ/IM 4VHPV 66729 ST P[facility]TM[facility] VACCINE 3 1 STEVEN SHASHANK DOSE SCHEDULE PHYSICIAN FOR IM S USE 4VHPV 50187 [facility] VACCINE 3 1 STEVEN MIN DOSE SCHEDULE PHYSICIAN FOR IM S USE URINE 59435 [facility] 1 STEVEN MIN TEST VISUAL PHYSICIAN COLOR S CMPRSN METHS GONADOTRO [address] PIN 1 STEVEN STEVEN CHORIONIC MEDICALCE MEDICALCE QUANTITAT NTER NTER MELINA COLLECTIO 10843 [facility] STEVEN MIN BLOOD VENIPUNCT PHYSICIAN URE S IADNA 92907 [facility] NEISSERIA 1 STEVEN STEVEN GONORRHOE MEDICALCE MEDICALCE AE NTER NTER AMPLIFIED PROBE TQ MOLEC 33890 [facility] ISOL/XTRJ 1 STEVEN STEVEN HP NUCLEIC MEDICALCE MEDICALCE ACID EA NTER NTER TYPE CYTP C/V 98940 [facility] AUTO THIN 1 STEVEN STEVEN LYR PREPJ SCR MEDICALCE MEDICALCE MNL NTER NTER RESCR PHYS IADNA 21899 [facility] CHLAMYDIA 1 STEVEN STEVEN TRACHOMAT MEDICALCE MEDICALCE IS NTER NTER AMPLIFIED PROBE TQ 4VHPV 83125 TOYA VACCINE 3 1 STEVEN SHASHANK DOSE SCHEDULE PHYSICIAN FOR IM S USE URINE 27563 ST MICHAEL 0 STEVEN SHE TEST VISUAL PHYSICIAN COLOR S CMPRSN METHS CULTURE 57586 [facility]ERIAL [facility] QU[facility] MEDICALCE VE COLONY NTER NTER COUNT URINE URINE 87200 ST MICHAEL 0 STEVEN SHE TEST VISUAL PHYSICIAN COLOR S CMPRSN METHS GONADOTRO [address] PIN 0 STEVEN STEVEN CHORIONIC MEDICALCE MEDICALCE QUANTITAT NTER NTER MELINA OPHTH 21545 MISA TAM, MEDICAL 0 STEPHON S SHEPPARD M XM&EVAL COMPRE NEW PT 1/> VST FRAMES V2020 CHRISTINA GREENE PURCHASES 0 DETERMINA 00526 CHRISTINA VASQUEZ, TION 0 PETAR Lewis PETAR Lewis REFRACTIV E STATE FITTING 31001 CHRISTINA GREENE SPECTACLE 0 S XCPT APHAKIA MONOFOCAL OPHTH 85622 CHRISTINA VASQUEZ, MEDICAL 0 PETAR Lewis PETAR Lewis XM&EVAL COMPRHNSV ESTAB PT 1/> SPHERE V2100 CHRISTINA GREENE SINGLE 0 VISION PLANO +/- 4.00 PER LENS INCISION 09051 PATIENT MICHAEL, & 9 FIRST LIDIA DRAINAGE PHYS ABSCESS SIMPLE/SI NGLE MCV4 42009 PATIENT TIO PITTMANLYNNETTE 8 FIRST KEVIN G CONJ VACC PHYS GRPS [id number] IM USE Encounters Encounter Start End Date Code Location Performer Type Date OFFICE 43091 [facility] 7 7 STEVEN DICKENS T VISIT 15 PHYSICIAN MINUTES [facility] 28293 CHELSI RENUSC DEPT 7 7 PHYSICIAN VISIT S, PLLC HIGH SEVERITY& THREAT FUNCJ EMERGENCY 86885 YOEL 7 7 [facility] DEPARTMEN INC T VISIT MODERATE SEVERITY HOSPITAL YOEL - 7 7 [facility] OUTPATIEN [facility] T OFFICE 32476 [facility] STEVEN T VISIT 15 PHYSICIAN MINUTES S EMERGENCY 26392 YOEL 6 6 [facility] DEPARTMEN INC T VISIT LIMITED/M INOR PROB EMERGENCY 30230 CHELSI LANG[facility]ON 6 6 PHYSICIAN CHUCK Zafar PLLC T VISIT HIGH/URGE NT SEVERITY HOSPITAL YOEL - 6 6 [facility] OUTPATIEN INC T EMERGENCY 64108 CHELSI [place] 6 6 PHYSICIAN CHUCK Zafar PLL[facility] T VISIT MODERATE SEVERITY OFFICE 14410 [facility] OUTPATIEN 6 6 STEVEN JF T VISIT 15 PHYSICIAN MINUTES [facility] ST - 6 6 STEVEN OUTPATIEN MED CTR T 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 ST - 6 6 STEVEN OUTPATIEN MED CTR T PHOTOGRAPHIC RESTORER OFFICE 02670 ST [facility] OUTPATIEN 6 6 STEVEN INDY T VISIT 15 PHYSICIAN MINUTES [facility] YOEL - 5 5 [facility] INPATIENT INC OFFICE 19439 [facility] MADRID OUTPATIEN 5 5 PHYSICIAN ENA T VISIT S GROUP 15 MINUTES [facility] YOEL - 5 5 [facility] OUTPATIEN [facility] YOEL - 5 5 [facility] OUTPATIEN [facility] T OFFICE 67377 [facility] MADIRD OUTPATIEN 5 5 PHYSICIAN ENA T VISIT S GROUP [address] [facility] 5 5 STEVEN INDY T VISIT 15 PHYSICIAN MINUTES [facility] YOEL - 5 5 [facility] OUTPATIEN [facility] YOEL - 5 5 [facility] OUTPATIEN [facility] T OFFICE 57577 [facility] MADRID OUTPATIEN 5 5 PHYSICIAN ENA T VISIT S GROUP 15 MINUTES [facility] YOEL - 5 5 [facility] OUTPATIEN [facility] T OFFICE 81095 [facility] MADRID OUTPATIEN 5 5 PHYSICIAN ENA T VISIT S GROUP [address]ES [address] [facility] OUTPATIEN 5 5 STEVEN CHRISSIE NIEVES T VISIT 25 PHYSICIAN MINUTES [facility] YOEL - 5 5 [facility] OUTPATIEN [facility] T OFFICE 17531 [facility] MADRID OUTPATIEN 4 4 PHYSICIAN ENA T VISIT S GROUP [address] - 4 4 STEVEN OUTPATIEN MED CTR T PHOTOGRAPHIC RESTORER ST OFFICE 77298 [facility] OUTPATIEN 4 4 STEVEN SHASHANK T VISIT 15 PHYSICIAN MINUTES S OFFICE 29407 JULIUS MADRID OUTPATIEN 4 4 ENA ENA T VISIT 15 MINUTES HOSPITAL YOEL - 4 4 [facility] INPATIENT INC OFFICE 01242 JULIUS MADRID OUTPATIEN 4 4 ENA ENA T VISIT 15 MINUTES HOSPITAL YOEL - 4 4 [facility] OUTPATIEN INC T OFFICE 46894 JULIUS MADRID OUTPATIEN 4 4 ENA ENA T VISIT 15 MINUTES HOSPITAL YOEL - 4 4 [facility] OUTPATIEN INC T OFFICE 92272 LILLIE HUSSEINPATIEN 4 4 KENDELL KENDELL T VISIT 15 MINUTES OFFICE 30146 MAR[facility] FUNES OUTPATIEN 4 4 JF JF T VISIT 15 MINUTES HOSPITAL YOEL - 4 4 [facility] OUTPATIEN INC T [facility]OSPITAL YOEL - 4 4 [facility] OUTPATIEN INC T OFFICE 56326 JULIUS MADRID OUTPATIEN 4 4 ENA ENA T VISIT 5 MINUTES HOSPITAL YOEL - 4 4 [facility] OUTPATIEN INC T OFFICE 66772 JULIUS MADRID OUTPATIEN 4 4 ENA ENA T VISIT 15 MINUTES OFFICE 53341 JULIUS MADRID OUTPATIEN 4 4 ENA ENA T VISIT 15 MINUTES OFFICE 71405 JULIUS MADRID OUTPATIEN 4 4 ENA ENA T VISIT 15 MINUTES HOSPITAL YOEL - 3 3 [facility] OUTPATIEN INC T OFFICE 42670 GINNY HUSSEINPATIEN 3 3 HARPEL MD KENDELL T VISIT 15 MINUTES OFFICE 87066 JULIUS MADRID OUTPATIEN 3 3 ENA ENA T VISIT 15 MINUTES HOSPITAL YOEL - 3 3 [facility] OUTPATIEN INC T OFFICE 13831 JULIUS MADRID OUTPATIEN 3 3 ENA ENA T VISIT 15 MINUTES OFFICE 86828 [facility] OUTPATI[facility] 3 3 HEALTH ENA T VISIT CLINIC OF 15 SAROJ MINUTES HOSPITAL YOEL - 2 2 [facility] INPATIENT INC OFFICE 47398 LILLIE MOREIRA OUTPATIEN 2 2 KENDELL KENDELL T VISIT 15 MINUTES OFFICE 80085 JULIUS MADRID OUTPATIEN 2 2 ENA ENA T VISIT 5 MINUTES OFFICE 21417 LILLIE MOREIRA OUTPATIEN 2 2 KENDELL KENDELL T VISIT 15 MINUTES EMERGENCY 88700 RAMIREZ LIZ RAMIREZ LIZ 2 2 DEPARTMEN T VISIT HIGH/URGE NT SEVERITY HOSPITAL YOEL - 2 2 [facility] OUTPATIEN [facility]PITAL YOEL - 2 2 [facility] OUTPATIEN INC T OFFICE 29660 TO[facility] PITTMAN OUTPATIEN 2 2 SHASHANK SHASHANK T VISIT 15 MINUTES OFFICE 14819 [facility] FUNES OUTPATIEN 2 2 JF JF T VISIT 15 MINUTES OFFICE 80884 [facility] PITTMAN OUTPATIEN 2 2 SHASHANK SHASHANK T VISIT 15 MINUTES OFFICE 44614 [facility]ES OUTPATIEN 2 2 FJ JF T VISIT 15 MINUTES OFFICE 34849 [facility] PITTMAN OUTPATIEN 1 1 SHASHANK SHASHANK T VISIT [address] - 1 1 STEVEN OUTPATIEN T MEDICALCE NTER OFFICE 12322 TOYA TOYA OUTPATIEN 1 1 SHASHANK SHASHANK T VISIT [address] [facility] OUT[facility] 1 1 STEVEN JF T VISIT 15 PHYSICIAN MINUTES S OFFICE 90119 PEN[facility] PENDELETO OUTPATIEN 1 1 N CO N CO T [address] [facility] OFFICE [address] ST [facility] OUTPATIEN 1 1 STEVEN SHASHANK T VISIT 15 PHYSICIAN MINUTES S OFFICE [address]130 ST MICHAEL OUTPATIEN 1 1 STEVEN SHE T VISIT 25 PHYSICIAN MINUTES [facility] ST - 1 1 STEVEN OUTPATIEN T MEDICALCE NTER PERIODIC [address]5726 ST [facility] PREVENTIV 1 1 STEVEN SHASHANK E MED EST PATIENT PHYSICIAN 12-17[facility] ST - 1 1 STEVEN OUTPATIEN T MEDICALCE NTER OFFICE 77758 ST MICHAEL OUTPATIEN 0 0 STEVEN SHE T VISIT 25 PHYSICIAN MINUTES [facility] ST - 0 0 STEVEN OUTPATIEN T MEDICALCE NTER OFFICE 35729 ST MICHAEL OUTPATIEN 0 0 STEVEN SHE T VISIT 25 PHYSICIAN MINUTES [facility] ST - 0 0 STEVEN OUTPATIEN T MEDICALCE NTER OFFICE 23615 ST [facility], OUTPATIEN 0 0 STEVENTHOMAS BROWN G T VISIT 15 PHYSICIAN MINUTES S OFFICE [address] [facility], OUTPATIEN 0 0 STEVENTHOMAS BROWN G T VISIT 15 PHYSICIAN MINUTES S OFFICE 43743 LILA FUNES OUTPATIEN 0 0 MEDICAL MABEL T VISIT GROUP [address]ES [address] [facility], OUTPATIEN 0 0 STEVENFRANKY BROWN G T VISIT 15 PHYSICIAN MINUTES S OFFICE 98450 PATIENT LYNNETTE MARTINEZ 9 9 FIRST SUSANNA C T VISIT PHYS 15 MINUTES OFFICE 69728 PATIENT LYNNETTE FUNES 9 9 FIRST MABEL T VISIT PHYS 15 MINUTES OFFICE 12344 PATIENT LYNNETTE MICHAEL 9 9 FIRST LIDIA T VISIT PHYS 25 MINUTES PERIODIC 92562 PATIENT LENY PITTMAN 8 8 FIRST KEVIN G E MED EST PHYS PATIENT [id number] OFFICE 68427 PATIENT LYNNETTE FUNES 8 8 FIRST MABEL T VISIT PHYS 25 MINUTES OFFICE 38496 PATIENT LYNNETTE FUNES 8 8 FIRST MABEL T VISIT PHYS 15 MINUTES OFFICE 21878 PATIENT LYNNETTE PITTMAN 8 8 FIRST KEVIN G T VISIT PHYS 15 MINUTES
--- OUTSIDE RECORDS SUMMARY | 2017-03-25 05:26 | External Medical Summary Rpt | CCD ---
Author Author , STEPHANIE Organization [facility] Address Unknown Phone [email or web address] Care Team Providers Care Pc Tech Name Role Phone HARLEY SOUZA Unavailable Unavailable TALBOT INDY, Unavailable Unavailable TALBOT INDY MADRID ENA, MADRID Unavailable Unavailable ENA MADRID ENA, MADRID Unavailable Unavailable ENA [facility] Unavailable Unavailable [place], [facility] Unavailable Unavailable [place], [facility] Unavailable Unavailable [facility], Unavailable Unavailable NAUN YUNG [id number], Unavailable Unavailable [id number] CHRISTINA GREENE CHRISTINA JAM Unavailable [...] Unavailable Unavailable INC, [facility], Unavailable Unavailable [facility] KALFAS MIN, KALFAS Unavailable Unavailable MIN KALFAS, SUSANNA C, Unavailable Unavailable KALFAS, SUSANNA C [facility] Unavailable Unavailable [facility], [facility] CHRISSIE JR, CHRISSIE JR [...] CAM [facility] Unavailable Unavailable [facility] Unavailable Unavailable [facility], [facility] Unavailable Unavailable [facility] Unavailable Unavailable [facility]ICIANS, [facility] THI VALLE, THI Unavailable Unavailable LEONARD PALACIOS, Unavailable Unavailable LIDIA WALKER, Unavailable Unavailable LIDIA MICHAEL [facility] Unavailable Unavailable #5, [facility] Purpose Continuity of Care Document - 07-22-2007 through 2016 Problems Code Diagnosis DOS Provider Status [id number] OTH SPEC 02-02-2017 ST BACTERIAL ST[facility]EN AGNT CAUSE [facility]YS[facility]ANS DZ CLASSIFIED ELSW [id number] MIGRAINE 02-02-2017 ST W/O AURA STEVEN NOT INTRACT PHYSICIANS W/O STAT MIGRAIN J0190 ACUTE 02-02-2017 ST SINUSITIS STEVEN UNSPECIFIED PHYSICIANS Z6841 BODY MASS 02-02-2017 ST INDEX BMI STEVEN 40.0-44.9 PHYSICIANS ADULT N912 AMENORRHEA 11-21-2016 [facility] R05 COUGH 10-15-2016 [facility] R0602 SHORTNESS 10-15-2016 CHELSI OF BREATH PHYSICIANS, [facility] B349 VIRAL 06-14-2016 ST INFECTION STEVEN UNSPECIFIED [...] ST STEVEN PHYSICIANS N3001 ACUTE 10-06-2015 CYSTITIS [place] WITH PHYSICIANS HEMATURIA O3421 MATERNAL 06-07-2015 [facility] CARE SCAR PHYSICIANS PREVIOUS GROUP DELIVERY O655 OBSTRUCTED 06-07-2015 [facility] ABNORMAL INC MAT PELVIC ORGANS Z302 ENCOUNTER 06-07-2015 [facility] FOR PHYSICIANS STERJAMES GROUP ON Z370 SINGLE LIVE 06-07-2015 [facility] Z3A39 39 WEEKS 06-07-2015 [facility] GESTATION PHYSICIANS OF GROUP Z3480 ENC 05-27-2015 [facility] SUPERVISION PHYSICIANS OT NORMAL GROUP PREG UNS TRIMESTER J60680 OTHER SPEC 05-22-2015 [facility] RELATED INC COND 3RD TRIMESTER O4703 FALSE LABOR 05-22-2015 GINNY Hung BEFORE 37 LILLIE MAC CMPLETE WEEKS GEST 3RD TRI Z3A37 37 WEEKS 05-22-2015 [facility] GESTATION [facility] OF INC T37285 OTHER ACUTE 05-11-2015 STEVEN NONSUPPURAT PHYSICIANS MELINA OTITIS MEDIA RT EAR J029 ACUTE 05-11-2015 ST PHARYNGITIS STEVEN PHYSICIANS UNSPECIFIED O6003 05-03-2015 [facility] LABOR PHYSICIANS WITHOUT GROUP DELIVERY THIRD TRIMESTER Z3A34 34 WEEKS 05-03-2015 [facility] OF INC W08386 ABNORMAL 04-30-2015 [facility] GLUCOSE PHYSICIANS COMPLICATIN GROUP G [id number] MATERNAL 04-26-2015 [facility] CARE EXCESS PHYSICIANS GROUP GROWTH 3RD TRI NA/UNS [id number] DECREASED 04-22-2015 [facility] MOVEMENTS INC THIRD TRIMESTER NA/UNS O4702 FALSE LABOR 04-22-2015 GINNY Hung BEFORE 37 LILLIE MAC CMPLETE WEEKS GEST 2ND TRI Z3A33 33 WEEKS 04-22-2015 [facility]STATION [facility] OF INC V221 SUPERVISION 02-02-2015 [place] OF OTHER MEDICAL [facility]ORMAL [facility] 12293 OTHER 12-08-2014 [facility] SPECIFED PHYSICIANS COMPLICATIO GROUP N ANTEPARTUM 4610 ACUTE 11-25-2014 ST MAXILLARY STEVEN SINUSITIS PHYSICIANS V222 11-25-2014 STATE, STEVEN INCIDENTAL PHYSICIANS V745 SCREENING 11-24-2014 [facility] FOR VENEREAL DISEASE V2502 GENERAL 05-28-2014 [facility] CNSL PHYSICIANS INITIATION GROUP OTH CONTRACEPT MEASURES V2509 OT GENERAL 05-28-2014 [facility] PHYSICIANS CNSL&ADVICE GROUP CONTRACEPT MANAGEMENT V2542 SURVEILLANC 05-28-2014 [facility] E PREV PRSC PHYSICIANS INTRAUTERN GROUP CNTRACPT DEVC 39793 OBESITY, 05-19-2014 ST UNSPECIFIED STEVEN MED CTR DRY CLIPPER TENDER [facility] 1121 CANDIDIASIS 05-11-2014 ST OF VULVA STEVEN AND VAGINA PHYSICIANS 3829 UNSPECIFIED 05-11-2014 ST OTITIS STEVEN MEDIA PHYSICIANS 4739 UNSPECIFIED 05-11-2014 ST SINUSITIS STEVEN PHYSICIANS 4779 ALLERGIC 05-11-2014 ST RHINITIS STEVEN CAUSE PHYSICIANS UNSPECIFIED 46762 ESOPHAGEAL 05-11-2014 ST REFLUX STEVEN PHYSICIANS 64533 MATERNAL 11-05-2013 JULI[facility] ENA MENTAL D/O COND/COMPLI CATION V2511 ENC FOR 10-10-2013 J[facility] ENA INSERTION INTRAUTERIN E CONTRACEPT DEVICE 72569 PREV C/S 08-29-2013 [facility] DELIV DELIV [facility] W/WO INC MENTION ANTPRTM COND 75788 C/S DELIV 08-29-2013 HARPEL KENDELL W/O INDICAT DELIV W/WO ANTPRTM COND V270 OUTCOME OF 08-29-2013 [facility] DELIVERY [facility] SINGLE INC LIVEBORN 51664 THREATENED 08-20-2013 [facility] PREMATURE [facility] LABOR INC ANTEPARTUM 22359 EXCESS 08-12-2013 JULIUS ENA GROWTH AFFECT MGMT MOTH ANTPRTM 32293 OTHER 08-05-2013 HARPEL KENDELL THREATENED LABOR, ANTEPARTUM 83668 ABNORMAL 07-11-2013 J[facility] ENA MATERNAL GLUCOSE TOLERANCE ANTEPARTUM 97522 THREATENED 07-10-2013 EVER PREMATURE CO LABOR AMBULANCE UNSPEC TAXIN EPIS CARE V283 ENCOUNTER 04-17-2013 JULIUS SUTHERLAND ROUTINE SCREEN MALFORMATIO N ULTRASONIC 79569 UNSPECIFIED 03-26-2013 JULIUS SUTHERLAND VAGINITIS AND VULVOVAGINI TIS V242 ROUTINE 02-05-2012 PATHOLOGY & CYTOLOGY FOLLOW-UP LAB 83887 FETOPELVIC 01-02-2012 [facility] DISPROPORTI [facility] ON, INC DELIVERED 36108 OBSTRUCTION 01-02-2012 [facility] BY [facility] PELVIS INC DURING L&D DELIVERED 86988 UNSPECIFIED 01-02-2012 COMMUNITY FAILED ANESTH OF TRIAL OF THE BLUE LABOR DELIVERED 19143 OTHER AND 01-02-2012 [facility] UNSPECIFIED [facility] UTERINE INC INERTIA W/DELIVERY 76076 DECR 12-31-2011 JULIUS ENA MOVMNTS MGMT MOTH ANTPRTM COND/COMP V220 SUPERVISION 12-08-2011 COMBINED OF NORMAL PHYSICIANS FIRST [place] 6268 OTH D/O 08-01-2011 RAMIREZ LIZ MENSTRUATIO N&OTH ABN BLEED FE GNT TRACT 27928 UNSPEC 08-01-2011 [facility] HEMORRHAGE [facility] EARLY INC ANTEPARTUM 4659 ACUTE URIS 07-12-2011 TOYA SHASHANK OF UNSPECIFIED SITE 19018 UNSPECIFIED 07-12-2011 TOYA SHASHANK CONSTIPATIO N 17314 NAUSEA 07-04-2011 SCHACK JF ALONE V7231 ROUTINE 06-28-2011 PATHOLOGY & GYNECOLOGIC CYTOLOGY AL LAB EXAMINATION 5368 DYSPEPSIA&O 06-19-2011 TOYA SHASHANK THER SPEC DISORDERS FUNCTION STOMACH 6260 ABSENCE OF 06-13-2011 [facility]ACK JF MENSTRUATIO N 2859 UNSPECIFIED 05-24-2011 [place] [address] OTHER 05-24-2011 [facility] V2501 GENERAL 05-24-2011 TOYA SHASHANK COUNSELING PRESCRIPTIO N ORAL CONTRACEPTS 5693 HEMORRHAGE 04-14-2011 TOYA SHASHANK OF RECTUM AND ANUS 62095 URINARY 04-14-2011 TOYA SHASHANK FREQUENCY V0489 NEED PROPH 01-05-2011 ST VACCINATION STEVEN &INOCULAT PHYSICIANS OT VIRAL DZ V741 SCREENING 11-04-2010 [facility] EXAMINATION [facility] PULMONARY TUBERCULOSI S 4619 ACUTE 09-01-2010 ST SINUSITIS, STEVEN UNSPECIFIED PHYSICIANS 65091 ABDOMINAL 09-01-2010 ST PAIN, STEVEN UNSPECIFIED PHYSICIANS SITE 6235 LEUKORRHEA 06-15-2010 NOT [place] SPECIFIED PHYSICIANS INFECTIVE V202 ROUTINE 06-15-2010 INFANT OR [place] CHILD PHYSICIANS HEALTH CHECK 6264 IRREGULAR 04-19-2010 MENSTRUAL [place] CYCLE PHYSICIANS 7881 DYSURIA 04-19-2010 [facility] PHYSIC[facility]ANS 58443 UNSPECIFIED 12-21-2009 [facility] STEPHON S CATARACT 3670 HYPERMETROP 12-08-2009 NNEKA VASQUEZ 6829 CELLULITIS 09-09-2009 [facility] OF GROUP UNSPECIFIED SITE 5990 URINARY 08-04-2009 TRACT [place] INFECTION PHYSICIANS SITE NOT SPECIFIED 4871 INFLUENZA 03-10-2009 PATIENT WITH OTHER FIRST PHYS RESPIRATORY MANIFESTATI ONS 7099 UNSPECIFIED 08-19-2008 PATIENT DISORDER [facility] OF SKIN&SUBCUT ANEOUS TISSUE V0389 NEED PROPH 01-10-2008 PATIENT VACC [facility] AGAINST OTH SPEC VACC 92531 ASTHMA 10-24-2007 PATIENT UNSPECIFIED FIRST PHYS WITH EXACERBATIO N 0340 STREPTOCOCC 09-09-2007 PATIENT AL SORE FIRST [facility] THROAT 00031 UNSPECIFIED 07-22-2007 PATIENT VIRAL FIRST PHYS INFECTION [...] MA MG CY TA #5 BL ET UT 00 08 09 60 30 00 TO [...] 16 06 07 1. 1 00 TO [facility] 71 -2 -2 00 00 TA ti [...] 16 04 05 30 30 00 TO [facility] 71 -2 -2 .0 00 TA ti TA 40 4- 6- 00 00 L ve DI 48 20 20 92 CA NE 20 17 17 86 RE 3 03 10 PH AR MG MA CY TA BL #5 ET FL 16 02 03 1. 1 00 TO [facility] 71 -1 -1 00 00 TA ti [...] 53 20 20 R 01 11 11 TN 4 CH AE L G 00 08 [...] 53 20 20 R 01 11 11 TN 4 CH AE L G LO 51 05 08 3 90 90 76 SC Ac RA 66 -0 -2 .0 33 CLEMENTS ti TA 00 18 FE ve DI 52 20 20 R NE 60 11 11 TN 5 CH 10 AE L MG G TA BL ET 00 07 11 28 28 75 SC Ac 43 -0 -2 .0 21 CLEMENTS ti 00 46 FE ve 53 20 20 R 01 11 11 TN 4 CH AE L G ME 50 07 07 0 14 7 76 SC Ac TR 11 -2 -2 .0 98 CLEMENTS ti ON 10 26 FE ve ID 33 20 20 R AZ 40 11 11 TN OL 1 CH E AE 50 L 0 G MG TA BL ET FL 00 07 07 0 1. 1 76 SC Ac UC 17 -2 -2 00 98 CLEMENTS ti ON 25 8- 0 27 FE ve AZ 41 20 20 R OL 21 11 11 TN E 1 CH 15 AE 0 L MG G TA BL ET 00 01 06 11 28 28 75 SC Ac 43 -0 -2 .0 21 CLEMENTS ti 00 46 FE ve 53 20 20 R 01 11 11 TN 4 CH AE L G FL 00 05 05 6 16 30 76 SC Ac UT 05 -0 -0 .0 33 CLEMENTS ti IC 43 17 FE ve 27 20 20 R ON 09 11 11 TN E 9 CH UT AE OP L G 50 MC G SP RA Y LO 51 05 05 3 90 90 76 SC Ac RA 66 -0 -0 .0 33 CLEMENTS ti TA 00 18 FE ve DI 52 20 20 R NE 60 11 11 TN 5 CH 10 AE L MG G TA BL ET AZ 59 05 05 0 6. 5 76 SC Ac IT 76 -0 -0 00 33 CLEMENTS ti HR 23 9- 9- 0 19 FE ve OM 06 20 20 R YC 00 11 11 TN IN 1 CH AE 25 L 0 G MG TA BL ET 00 01 04 11 28 28 75 SC Ac 43 -0 -1 .0 21 CLEMENTS ti 00 5 46 FE ve 53 20 20 R 01 11 11 TN 4 CH AE L G FL 00 [...] 53 20 20 R 01 11 11 TN 4 CH AE L G 00 01 02 11 28 28 75 SC Ac 43 -0 -1 .0 21 CLEMENTS ti 00 46 FE ve 53 20 20 R 01 11 11 TN 4 CH AE L G FL 00 01 01 0 1. 1 75 SC Ac UC 17 -0 -0 00 21 CLEMENTS ti ON 25 5- 5- 0 47 FE ve AZ 41 20 20 R OL 21 11 11 TN E 1 CH 15 AE 0 L MG G TA BL ET ME 50 01 01 0 21 7 75 SC Ac TR 11 -0 -0 .0 21 CLEMENTS ti ON 10 43 FE ve ID 33 20 20 R AZ 40 11 11 TN OL 1 CH E AE 50 L 0 G MG TA BL ET 00 01 01 11 28 28 75 SC Ac 43 -0 -0 .0 21 CLEMENTS ti 00 5- 5 00 46 FE ve 53 20 20 R 01 11 11 TN 4 CH AE L G FL 00 06 06 0 1. 1 73 SC Ac UC 17 -0 -0 00 43 CLEMENTS ti ON 25 3- 3- 0 08 FE ve AZ 41 20 20 R OL 21 10 10 TN E 1 CH 15 AE 0 L MG G TA BL ET ME 50 06 06 0 14 7 73 SC Ac TR 11 -0 -0 .0 43 CLEMENTS ti ON 10 3- 00 09 FE ve ID 33 20 20 R AZ 40 10 10 TN OL 1 CH E AE 50 L [...] 00 10 5 CV 50 KA Ac TN 00 -3 -0 .0 S 75 LF ti FL 40 0- 8- 00 PH 31 ve U 80 20 20 AR 75 08 09 09 MA TN 5 CY NA MG C #5 CA [...] Procedure DOS Code Location Performer Comment GONADOT[address] PIN 7 STEVEN [facility] [place] [address] [facility] DI[facility] TROPONIN 7 MEM HOS[facility] QUANTITAT INC INC MELINA URNLS DIP 28944 [facility] DI[facility]O 7 [facility] STICK/TAB INC INC LET REAGENT AUTO MICROSCOP Y URINE 85153 [facility] 7 [facility] TEST INC INC VISUAL COLOR CMPRSN METHS BLOOD 12942 [facility] COUNT 7 MEM [facility] COMPLETE INC INC AUTO&AUTO DIFRNTL WBC CREATINE 27480 YOEL Y[facility]EL KINASE MB 7 MEM HOS[facility] FRACTION INC INC ONLY ECG 07055 [facility] ROUTINE 7 [facility] ECG INC INC W/LEAST 12 LDS TRCG ONLY W/O I&R FIBRIN 27160 [facility] DGRADJ 7 [facility] PRODUCTS INC INC D-DIMER QUAL/SEMI RUTH CREATINE 56927 [facility] KINASE 7 MEM HOS[facility] TOTAL INC INC COMPREHEN 46554 [facility] SIVE 7 [facility] METABOLIC INC INC PANEL RADIOLOGI 57596 [facility] C EXAM 7 MEDICAL CHEST 2 IMAGING VIEWS ASS FRONTAL&L ATERAL ECG 16655 YOEL DICKENS JR ROUTINE 7 [facility] W/LEAST P 12 LDS I&R ONLY IAADI 81451 [facility] INFLUENZA 6 [facility] B VIRUS INC INC IAADI 41901 [facility] DI[facility] INFFLUENZ 6 [facility] [place] [place] [address] Y[facility]EL DIALLO STREPTOCO 6 [facility] CCUS INC INC GROUP A OPHTH 42664 CHRISTINA RGEENE MEDICAL 6 XM&EVAL COMPRE NEW PT 1/> VST DETERMINA 20882 CHRISTINA GREENE TION 6 REFRACTIV E STATE SUSCEPTIB [address] LTY STDY 6 STEVEN ST[facility]EN ANTIMICRB MED CTR MED CTR IAL DRY CLIPPER TENDER ST DRY CLIPPER TENDER ST MICRO/AGA R DILUTJ CULTURE [address] [facility] QUANTTATI DRY CLIPPER TENDER ST DRY CLIPPER TENDER ST VE COLONY COUNT URINE CULTURE [address] BCT 6 STEVEN STEVEN ISOL&PRSM MED CTR MED CTR PTV ID DRY CLIPPER TENDER ST DRY CLIPPER TENDER ST ISOLATE EA URINE CULTURE [address] BCT 6 STEVEN STEVEN ISOL&PRSM MED CTR MED CTR PTV ID DRY CLIPPER TENDER ST DRY CLIPPER TENDER ST ISOLATE EA URINE CULTURE 276[address] [facility] QUANTTATI DRY CLIPPER TENDER ST DRY CLIPPER TENDER ST VE COLONY COUNT URINE SUSCEPTIB [address] LTY STDY 6 [facility] ANTIMICRB MED CTR MED CTR IAL DRY CLIPPER TENDER ST DRY CLIPPER TENDER ST MICRO/AGA R DILUTJ ANESTHESI 71175 [facility] A 5 ANESTH LEONARD OF THE DELIVERY BLUE ONLY LIG/TRNSX 85924 [facility] J 5 PHYSICIAN PHYSICIAN FALOPIAN S GROUP S GROUP TUBE DEL/ABDML SURG 79846 [facility] SCHULSTAD DELIVERY 5 PHYSICIAN CAM ONLY S GROUP 76056 [facility] MADRID DELIVERY 5 PHYSICIAN ENA ONLY S GROUP W/POSTPAR JOLLY CARE EXTRACTIO [id number] YOEL DIALLO N PRODUCT 5 MEM [facility] OF INC INC CONCEPTIO N LOW CERVICAL OP OCCLUSION [id number] [facility] DANO 5 [facility]OS[facility] FALLOPIAN INC INC TUBES EXTRALUM DEV OPEN 67000 [facility] NONSTRESS 5 [facility] TEST INC INC URNLS DIP 67376 [facility] DIALLO 5 [facility] STICK/TAB INC INC LET REAGENT AUTO MICROSCOP Y PARTICLE 13799 [facility] AGGLUTINA 5 [facility] TION INC INC SCREEN EACH ANTIBODY IAADIADOO [address]372 ST TALBOT 5 STEVEN INDY [place]OC[place] [address] Y[facility] INFUSION 5 [facility] THERAPY/P INC INC ROPHYLAXI S /DX 1ST TO 1 HR URNLS DIP 66045 [facility] DIALLO 5 [facility] STICK/TAB INC INC LET REAGENT AUTO MICROSCOP Y FTL 71199 [facility] FIBRONECT 5 [facility] IN INC INC CERVICOVA G SECRETION S SEMI-RUTH 99313 [facility] MADRID NONSTRESS 5 PHYSICIAN ENA TEST S GROUP CULTURE 47588 [facility] DI[facility] BACTERIAL 5 [facility] HOS[facility]OS[facility] INC INC QUANTTATI VE COLONY COUNT URINE GLUCOSE 68546 [facility] POST 5 PHYSICIAN PHYSICIAN GLUCOSE S GROUP S GROUP DOSE US PREG 69629 [facility] MAD[facility]ID UTERUS 5 PHYSICIAN ENA REAL TIME S GROUP F/U TRNSABDL PER FETUS DOPPLER 93945 [facility] VELOCIMET 5 PHYSICIAN ENA RY S GROUP UMBILICAL ARTERY 38032 [facility] BIOPHYSIC 5 PHYSICIAN ENA AL S GROUP PROFILE W/[place] [address] [facility] INFUSION 5 [facility] THERAPY/P INC INC ROPHYLAXI S /DX 1ST TO 1 HR FTL 31851 [facility] FIBRONECT 5 [facility] IN INC INC CERVICOVA G SECRETION S SEMI-RUTH URNLS DIP 74476 [facility] DIALLO 5 [facility] STICK/TAB INC INC LET REAGENT AUTO MICROSCOP Y CULTURE 95240 [facility] BACTERIAL 5 [facility] INC INC QUANTTATI VE COLONY COUNT URINE 68209 GINNY MOREIRA NONSTRESS 5 LILLIE MAC KENDELL TEST US PREG 18590 [facility] UTERUS 5 [facility] W/DETAIL INC INC JOHNATHAN GESTATION US PREG 20469 MAINE NAUN UTERUS 5 MEDICAL YUNG AFTER 1ST IMAGING TRIMEST [place] PREG 49629 [facility] MAD[facility]ID UTERUS 5 PHYSICIAN ENA REAL TIME S GROUP W/IMAGE DCMTN TRANSVAG IADNA 56646 [facility] CHLAMYDIA [facility] ER JR SUELLEN TRACHOMAT IS AMPLIFIED PROBE TQ CYTP C/V 30529 [facility] AUTO THIN [facility] ER JR SUELLEN LYR PREPJ SCR MNL RESCR PHYS IADNA 91121 [facility] NEISSERIA 5 [facility] ER JR SUELLEN GONORRHOE AE AMPLIFIED PROBE TQ COLLECTIO 49744 Y[facility]EL [facility]EL N VENOUS 5 [facility] BLOOD INC INC VENIPUNCT URE INF AGT G0432 [facility] DI[facility] AB DETECT 5 [facility] EIA TECH INC INC HIV-1&/HI V-2 SCR OBSTETRIC 90262 YOELANDRZEJ DIALLO PANEL 5 [facility] INC INC REMOVAL 73784 [facility] JULIUS INTRAUTER 4 PHYSICIAN NEA INE S GROUP DEVICE IUD BASIC [address] METABOLIC 4 STEVEN STEVEN PANEL MED CTR MED CTR CALCIUM DRY CLIPPER TENDER ST DRY CLIPPER TENDER ST TOTAL LIPID [address] PANEL 4 STEVEN STEVEN MED CTR MED CTR DRY CLIPPER [address] [place] [address] THYROID 4 STEVEN STEVEN STIMULATI MED CTR MED CTR NG DRY CLIPPER TENDER ST DRY CLIPPER TENDER ST HORMONE TSH URINE 02885 JULIUS MADRID 4 ENA ENA TEST VISUAL COLOR CMPRSN METHS INSERTION 41821 JULIUS MADRID 4 ENA ENA INTRAUTER INE DEVICE IUD LEVONORGE J7302 JULIUS MADRID STREL-RLS 4 ENA ENA E INTRAUTER N CNTRACPT 52 MG LOW 741 [facility]EL DI[facility] CERVICAL 4 [facility] INC INC SECTION 51074 HARPEL HARPEL DELIVERY 4 KENDELL KENDELL ONLY 89068 JULIUS MADRID DELIVERY 4 ENA ENA ONLY W/POSTPAR JOLLY CARE 66026 JULIUS MADRID NONSTRESS 4 ENA ENA TEST IAADI 73995 [facility] INFFLUENZ 4 [facility] A A VIRUS INC INC IAADI 94936 Y[facility] DIALLO INFLUENZA 4 [facility] B VIRUS INC INC EVAL C/V 33529 [facility] DI[facility] AMNIOTIC 4 [facility] FLUID [place] [address] Y[facility] DIALLO INFUSION 4 [facility] THERAPY/P INC INC ROPHYLAXI S /DX 1ST TO 1 HR URNLS DIP 02403 YOEL YOEL 4 [facility] STICK/TAB INC INC LET REAGENT AUTO MICROSCOP Y US PREG 77385 JULIUS MADRID UTERUS 4 ENA ENA REAL TIME F/U TRNSABDL PER FETUS DOPPLER 02373 JULIUS MADRID VELOCIMET 4 ENA ENA RY UMBILICAL ARTERY 72651 JULIUS MADRID BIOPHYSIC 4 ENA ENA AL PROFILE W/O NON-STRES S TESTING 22965 JULIUS MADRID NONSTRESS 4 ENA ENA TEST CUL BACT 74169 COMBINED COMBINED XCPT 4 PHYSICIAN PHYSICIAN URINE S LA S LA BLOOD/STO OL AEROBIC ISOL 28484 HARPEL HARPEL NONSTRESS 4 KENDELL KENDELL TEST EVAL C/V 01047 [facility] DI[facility] AMNIOTIC 4 [facility] FLUID INC INC PROTEIN QUAL EA SPECIMEN URNLS DIP 68733 [facility] DIALLO 4 [facility] STICK/TAB INC INC LET REAGENT AUTO MICROSCOP Y URNLS DIP 73528 Y[facility] DIALLO 4 [facility] STICK/TAB INC INC LET REAGENT AUTO MICROSCOP Y FTL 78420 YOEL DIALLO FIBRONECT 4 [facility] IN INC INC CERVICOVA G SECRETION S SEMI-RUTH EVAL C/V 75893 Y[facility]EL DIALLO AMNIOTIC 4 [facility] FLUID INC INC PROTEIN QUAL EA SPECIMEN 90362 YOEL DIALLO NONSTRESS 4 [facility] TEST INC INC GLUCOSE 08903 JULIUS MADRID TOLERANCE 4 ENA ENA TEST GTT 3 SPECIMENS THERAPEUT 72110 Y[facility]EL DIALLO IC 4 [facility] PROPHYLAC INC INC TIC/DX INJECTION SUBQ/IM COLLECTIO 46740 JULIUS MADRID N 4 ENA ENA CAPILLARY BLOOD SPECIMEN GROUND A0425 EVER EVER MILEAGE 4 CO CO PER AMBULANCE AMBULANCE STATUTE TAXIN TAXIN MILE AMBULANCE A0429 EVER EVER SERVICE 4 CO CO BLS AMBULANCE AMBULANCE EMERGENCY TAXIN TAXIN TRANSPORT EVAL C/V 62721 Y[facility]EL DIALLO AMNIOTIC 4 [facility] FLUID [place] [address] YOEL DIALLO INFUSION 4 [facility] THERAPY/P INC INC ROPHYLAXI S /DX 1ST TO 1 HR FTL 51540 YOEL DIALLO FIBRONECT 4 [facility] IN INC INC [place]ERVIC[place] [address] YOEL DIALLO INFUSION 4 [facility] THERAPY INC INC PROPHYLAX IS/DX EA HOUR URNLS DIP 87916 YOEL DIALLO 4 [facility] STICK/TAB INC INC LET REAGENT AUTO MICROSCOP Y THERAPEUT 12936 [facility]EL DIALLO IC 4 [facility] PROPHYLAC INC INC TIC/DX INJECTION SUBQ/IM 95132 JULIUS MADRID NONSTRESS 4 ENA ENA TEST CULTURE 52020 [facility] BACTERIAL 4 [facility] INC INC QUANTTATI VE COLONY COUNT URINE CULTURE 05174 [facility] BACTERIAL 3 [facility] INC INC QUANTTATI VE COLONY COUNT URINE 73776 [facility] NONSTRESS 3 [facility] TEST INC INC URNLS DIP 05380 [facility] 3 [facility] STICK/TAB INC INC LET REAGENT AUTO MICROSCOP Y FTL 04257 [facility] FIBRONECT 3 [facility] IN INC INC CERVICOVA G SECRETION S SEMI-RUTH URNLS DIP 53633 [facility] 3 [facility] STICK/TAB INC INC LET REAGENT AUTO MICROSCOP Y 47793 [facility] NONSTRESS 3 [facility] TEST INC INC US PREG 33363 JULIUS MADRID UTERUS 3 ENA ENA AFTER 1ST TRIMEST GESTATION SMR PRIM 66464 JULIUS MADRID SRC WET 3 ENA ENA MOUNT NFCT AGT US PREG 53108 WOMEN'S MADRID UTERUS 3 HEALTH ENA REAL TIME CLINIC OF W/IMAGE SAROJ DCMTN TRANSVAG ANTIBODY 95524 COMBINED COMBINED CHLAMYDIA 3 PHYSICIAN PHYSICIAN S LA S LA CUL BACT 20526 COMBINED COMBINED XCPT 3 PHYSICIAN PHYSICIAN URINE S LA S LA BLOOD/STO OL AEROBIC ISOL CYTP C/V 13566 PATHOLOGY PICKLESIM AUTO THIN 2 & ER JR SUELLEN LYR CYTOLOGY PREPJ SCR LAB MNL RESCR PHYS 07302 HARPEL HARPEL DELIVERY 2 KENDELL KENDELL ONLY NEURAXIAL 07758 [facility] AUDELIA KATERYNA LABOR 2 ANESTH ANALG/ANE OF THE S PLND BLUE VAGINAL DELIVERY ANES 81224 FOR[facility] THI CESARN 2 ANESTH LEONARD DLVR FLWG OF THE BLUE NEURAXIAL LABOR ANALG/ANE S 34546 MADRIDSakina MADRID DELIVERY 2 ENA ENA ONLY W/POSTPAR JOLLY CARE LOW 741 YOEL DIALLO CERVICAL 2 [facility] INC INC SECTION 19213 JULIUS MADRID NONSTRESS 2 ENA ENA TEST CUL BACT 62187 COMBINED COMBINED XCPT 2 PHYSICIAN PHYSICIAN URINE S LA S LA BLOOD/STO OL AEROBIC ISOL 26567 HARPEL HARPEL NONSTRESS 2 KENDELL KENDELL TEST AMBULANCE A0429 EVER EVER SERVICE 2 CO CO BLS AMBULANCE AMBULANCE EMERGENCY TAXIN TAXIN TRANSPORT GROUND A0425 EVER EVER MILEAGE 2 CO CO PER AMBULANCE AMBULANCE STATUTE TAXIN TAXIN MILE GLUCOSE 27047 JULIUS MADRID TOLERANCE 2 ENA ENA TEST GTT 3 SPECIMENS 18807 HARPEL HARPEL NONSTRESS 2 KENDELL KENDELL TEST US PREG 32746 JULIUS MADRID UTERUS 2 ENA ENA AFTER 1ST TRIMEST GESTATION BLOOD 26794 [facility]EL DIALL[facility] COUNT 2 [facility] COMPLETE INC INC AUTO&AUTO DIFRNTL WBC URNLS DIP 99764 [facility]EL [facility]ALL[facility] 2 [facility] STICK/TAB INC INC LET REAGENT AUTO MICROSCOP Y BASIC 17869 YOEL DIALLO METABOLIC 2 [facility] PANEL INC INC CALCIUM TOTAL GONADOTRO 88089 Y[facility]EL DIALL[facility] PIN 2 [facility] CHORIONIC INC INC QUANTITAT MELINA GONADOTRO 72642 Y[facility]EL [facility] PIN 2 [facility] [place] [address] Y[facility] ESTRIOL 2 [facility] INC INC ALPHA-FET 20343 YOEL DIALLO OPROTEIN 2 [facility] INC [place] PREG 04680 JULIUS MADRID UTERUS 2 ENA ENA REAL TIME W/IMAGE DCMTN TRANSVAG IADNA 32540 PATHOLOGY PICKLESIM CHLAMYDIA 2 & ER JR SUELLEN CYTOLOGY TRACHOMAT LAB IS AMPLIFIED PROBE TQ CYTP C/V 66402 PATHOLOGY PICKLESIM AUTO THIN 2 & ER JR SUELLEN LYR CYTOLOGY PREPJ SCR LAB MNL RESCR PHYS IADNA 23831 PATHOLOGY PICKLESIM NEISSERIA 2 & ER JR SUELLEN CYTOLOGY GONORRHOE LAB AE AMPLIFIED PROBE TQ URINE 61531 MARIN FUNES 2 JF JF TEST VISUAL COLOR CMPRSN METHS CYANOCOBA 85968 [facility] FLAKO 1 [facility] VITAMIN B-12 [place] [address] [facility] THYROID 1 [facility] STIMULATI NG MEDICAL [place] [address] [facility] FOLIC 1 [facility] ACID SERUM [place] [address] [facility] IRON 1 [facility] MEDICAL MEDICALCE NTER NTER COLLECTIO 58134 [facility] PITTMAN N VENOUS 1 SHASHANK SHASHANK BLOOD VENIPUNCT URE IRON 82789 [facility] BINDING 1 [facility] CAPACITY MEDICALCE MEDICALCE NTER NTER BLOOD 62542 [facility] COUNT 1 [facility] COMPLETE AUTO&AUTO MEDICALCE MEDICALCE DIFRNTL NTER NTER WBC URNLS DIP 55965 [facility] PITTMAN 1 SHASHANK SHASHANK STICK/TAB LET RGNT NON-AUTO W/O MICRSCP THERAPEUT 08706 [facility] PITTMAN IC 1 SHASHANK SHASHANK PROPHYLAC TIC/DX INJECTION SUBQ/IM 4VHPV 46016 ST PITTM[facility] VACCINE 3 1 STEVEN SHASHANK DOSE SCHEDULE PHYSICIAN FOR IM S USE 4VHPV 44802 [facility] [place] VACCINE 3 1 STEVEN MIN DOSE SCHEDULE PHYSICIAN FOR IM S USE URINE 61321 [facility] [place] 1 STEVEN MIN TEST VISUAL PHYSICIAN COLOR S CMPRSN METHS GONADOTRO [address] PIN 1 STEVEN STEVEN CHORIONIC MEDICALCE MEDICALCE QUANTITAT NTER NTER MELINA COLLECTIO [facility]19 [facility] STEVEN MIN BLOOD VENIPUNCT PHYSICIAN URE S IADNA 35803 [facility] NEISSERIA 1 STEVEN STEVEN GONORRHOE MEDICALCE MEDICALCE AE NTER NTER AMPLIFIED PROBE TQ MOLEC 93174 [facility] ISOL/XTRJ 1 STEVEN STEVEN HP NUCLEIC MEDICALCE MEDICALCE ACID EA NTER NTER TYPE CYTP C/V 19155 [facility] AUTO THIN 1 STEVEN STEVEN LYR PREPJ SCR MEDICALCE MEDICALCE MNL NTER NTER RESCR PHYS IADNA 34979 [facility] CHLAMYDIA 1 STEVEN STEVEN TRACHOMAT MEDICALCE MEDICALCE IS NTER NTER AMPLIFIED PROBE TQ 4VHPV 94072 [facility] VACCINE 3 1 STEVEN SHASHANK DOSE SCHEDULE PHYSICIAN FOR IM S USE URINE 73647 ST MICHAEL 0 STEVEN SHE TEST VISUAL PHYSICIAN COLOR S CMPRSN METHS CULTURE 50208 [facility]ERIAL [facility] QUANTTATI MEDICALCE MEDICALCE VE COLONY NTER NTER COUNT URINE URINE 00163 ST MICHAEL 0 STEVEN SHE TEST VISUAL PHYSICIAN COLOR S CMPRSN METHS GONADOTRO [address] PIN 0 STEVEN STEVEN CHORIONIC MEDICALCE MEDICALCE QUANTITAT NTER NTER MELINA OPHTH 79084 MISA TAM, MEDICAL 0 STEPHON S SHEPPARD M XM&EVAL COMPRE NEW PT 1/> VST FRAMES V2020 CHRISTINA GREENE PURCHASES 0 DETERMINA 97334 CHRISTINA VASQUEZ, TION 0 PETAR Lewis PETAR Lewis REFRACTIV E STATE FITTING 01133 CHRISTINA GREENE SPECTACLE 0 S XCPT APHAKIA MONOFOCAL OPHTH 69039 CHRISTINA VASQUEZ, MEDICAL 0 PETAR Lewis PETAR Lewis XM&EVAL COMPRHNSV ESTAB PT 1/> SPHERE V2100 CHRISTINA GREENE SINGLE 0 VISION PLANO +/- 4.00 PER LENS INCISION 19978 PATIENT MICHAEL, & 9 FIRST LIDIA DRAINAGE PHYS ABSCESS SIMPLE/SI NGLE MCV4 [id number] PATIENT TIO PITTMANLYNNETTE 8 FIRST KEVIN G CONJ VACC PHYS GRPS [id number] IM USE Encounters Encounter Start End Date Code Location Performer Type Date OFFICE 43786 [facility] 7 7 STEVEN DICKENS T VISIT 15 PHYSICIAN MINUTES [facility] EMERGENCY 24824 CHELSI [facility] DEPT 7 7 PHYSICIAN VISIT S, PLLC HIGH SEVERITY& THREAT FUNCJ EMERGENCY 81045 [facility] 7 7 [facility] DEPART[facility] INC T VISIT MODERATE SEVERITY [facility] - 7 7 [facility] T OFFICE 95559 [facility] [place] 7 7 STEVEN T VISIT 15 PHYSICIAN MINUTES S EMERGENCY 37327 [facility] 6 6 [facility] DEPARTMEN INC T VISIT LIMITED/M INOR PROB EMERGENCY 06050 CHELSI [facility] 6 6 PHYSICIAN CHUCK Zafar PLLC T VISIT HIGH/URGE NT SEVERITY [facility]OSPITAL [facility] - 6 6 [facility] OUTPATIEN INC T EMERGENCY 23130 CHELSI [facility] 6 6 PHYSICIAN CHUCK Zafar PLLC T VISIT MODERATE SEVERITY OFFICE 43765 [facility] 6 6 STEVEN JF T VISIT 15 PHYSICIAN MINUTES [facility] ST - 6 6 STEVEN OUTPATIEN MED CTR T DRY CLIPPER TENDER [facility] ST - 6 6 STEVEN OUTPATIEN MED CTR T DRY CLIPPER TENDER OFFICE 12507 [facility] [place] [facility] 6 6 STEVEN INDY T VISIT 15 PHYSICIAN MINUTES [facility] YOEL - 5 5 [facility] INPATIENT INC OFFICE 04571 [facility] OUTPATIEN 5 5 PHYSICIAN ENA T VISIT S GROUP 15 MINUTES [facility] YOEL - 5 5 [facility] OUTPATIEN [facility] YOEL - 5 5 [facility] OUTPATIEN [facility] T OFFICE 09572 [facility] OUTPATIEN 5 5 PHYSICIAN ENA T VISIT S GROUP [address]ES [address] [place] [facility] 5 5 STEVEN INDY T VISIT 15 PHYSICIAN MINUTES [facility] YOEL - 5 5 [facility] OUTPATIEN [facility] YOEL - 5 5 [facility] OUTPATIEN [facility] T OFFICE 32472 [facility] OUTPATIEN 5 5 PHYSICIAN ENA T VISIT S GROUP 15 MINUTES [facility] YOEL - 5 5 [facility] OUTPATIEN [facility] T OFFICE 31460 [facility] OUTPATIEN 5 5 PHYSICIAN ENA T VISIT S GROUP [address]ES [address] [facility] OUTPATIEN 5 5 STEVEN CHRISSIE NIEVES T VISIT 25 PHYSICIAN MINUTES [facility] YOEL - 5 5 [facility] OUTPATIEN [facility] T OFFICE 31052 [facility] OUTPATIEN 4 4 PHYSICIAN ENA T VISIT S GROUP [address] - 4 4 STEVEN OUTPATIEN MED CTR T DRY CLIPPER TENDER ST OFFICE 86833 [facility] OUTPATIEN 4 4 STEVEN SHASHANK T VISIT 15 PHYSICIAN MINUTES S OFFICE 60322 [facility] OUTPATIEN 4 4 ENA ENA T VISIT 15 MINUTES [facility]OS[facility] - 4 4 [facility] INPATIENT INC OFFICE 04251 [facility] OUTPATIEN 4 4 ENA ENA T VISIT 15 MINUTES [facility] - 4 4 [facility] OUTPATIEN INC T OFFICE 61510 [facility] OUTPATIEN 4 4 ENA ENA T VISIT 15 MINUTES [facility] - 4 4 [facility] OUTPATIEN INC T OFFICE 34413 LILLIE HUSSEINPATIEN 4 4 KENDELL KENDELL T VISIT 15 MINUTES OFFICE 43304 [facility]ES OUTPATIEN 4 4 JF JF T VISIT 15 MINUTES [facility] - 4 4 [facility] T [facility] - 4 4 [facility] OUTPATIEN INC T OFFICE 17761 [facility] OUTPATIEN 4 4 ENA ENA T VISIT 5 MINUTES [facility] - 4 4 [facility] OUTPATIEN INC T OFFICE 74240 [facility] OUTPATIEN 4 4 ENA ENA T VISIT 15 MINUTES OFFICE 87840 [facility] OUTPATIEN 4 4 ENA ENA T VISIT 15 MINUTES OFFICE 80597 [facility] OUTPATIEN 4 4 ENA ENA T VISIT 15 MINUTES [facility] - 3 3 [facility] OUTPATIEN INC T OFFICE 96362 GINNY HUSSEINPATIEN 3 3 HARPEL MD KENDELL T VISIT 15 MINUTES OFFICE 98544 [facility] OUTPATIEN 3 3 ENA ENA T VISIT 15 MINUTES [facility] - 3 3 [facility] INC T OFFICE 12615 [facility] OUTPATIEN 3 3 ENA ENA T VISIT 15 MINUTES OFFICE 42976 [facility] 3 [facility] T VISIT [facility] 15 SAROJ MINUTES [facility] - 2 2 [facility] INPATIENT INC OFFICE 65292 LILLIE MOREIRA OUTPATIEN 2 2 KENDELL KENDELL T VISIT 15 MINUTES OFFICE 51678 [facility] OUTPATIEN 2 2 ENA ENA T VISIT 5 MINUTES OFFICE 55712 LILLIE MOREIRA OUTPATIEN 2 2 KENDELL KENDELL T VISIT 15 MINUTES EMERGENCY 86601 RAMIREZ LIZ RAMIREZ LIZ 2 2 DEPARTMEN T VISIT HIGH/URGE NT SEVERITY [facility] - 2 2 [facility] Y[facility]EL - 2 2 [facility] INC T OFFICE 09892 [facility] PITTMAN OUTPATIEN 2 2 SHASHANK SHASHANK T VISIT 15 MINUTES OFFICE 04501 [facility] OUTPATIEN 2 2 JF JF T VISIT 15 MINUTES OFFICE 77518 [facility] PITTMAN OUTPATIEN 2 2 SHASHANK SHASHANK T VISIT 15 MINUTES OFFICE 44721 [facility] OUTPATI[facility] 2 2 JF JF T VISIT 15 MINUTES OFFICE 55360 [facility] PITTMAN OUTPATIEN 1 1 SHASHANK SHASHANK T VISIT [address] - 1 1 STEVEN OUTPATIEN T MEDICALCE NTER OFFICE 89357 [facility] OUTPATIEN 1 1 SHASHANK SHASHANK T VISIT [address] [facility] OUT[facility] 1 1 STEVEN JF T VISIT 15 PHYSICIAN MINUTES S OFFICE 99606 [facility] PENDE[facility] OUTPATIEN 1 1 N [place] [facility] [address] [facility] OFFICE 936[address] ST [facility] OUTPATIEN 1 1 STEVEN SHASHANK T VISIT 15 PHYSICIAN MINUTES S OFFICE 95074 ST [facility] OUTPATIEN 1 1 STEVEN SHE T VISIT 25 PHYSICIAN MINUTES [facility] ST - 1 1 STEVEN OUTPATIEN T MEDICALCE NTER PERIODIC 22476 ST [facility] PREVENTIV 1 1 STEVEN SHASHANK E MED EST PATIENT PHYSICIAN 12-17[facility] - 1 1 STEVEN OUTPATIEN T MEDICALCE NTER OFFICE 73929 ST MICHAEL OUTPATIEN 0 0 STEVEN SHE T VISIT 25 PHYSICIAN MINUTES [facility] ST - 0 0 STEVEN OUTPATIEN T MEDICALCE NTER OFFICE 16240 ST MICHAEL OUTPATIEN 0 0 STEVEN SHE T VISIT 25 PHYSICIAN MINUTES [facility] ST - 0 0 STEVEN OUTPATIEN T MEDICALCE NTER OFFICE 37419 ST [facility], OUTPATIEN 0 0 STEVENTHOMAS BROWN G T VISIT 15 PHYSICIAN MINUTES S OFFICE 92998 ST [facility], OUTPATIEN 0 0 STEVENTHOMAS BROWN G T VISIT 15 PHYSICIAN MINUTES S OFFICE 09214 LILA FUNES OUTPATIEN 0 0 MEDICAL MABEL T VISIT GROUP [address] [facility], OUTPATIEN 0 0 STEVENFRANKY BROWN G T VISIT 15 PHYSICIAN MINUTES S OFFICE 77268 PATIENT LYNNETTE MARTINEZ 9 9 FIRST SUSANNA C T VISIT PHYS 15 MINUTES OFFICE 75174 PATIENT LYNNETTE FUNES 9 9 FIRST MABEL T VISIT PHYS 15 MINUTES OFFICE 07267 PATIENT LYNNETTE MICHAEL 9 9 FIRST LIDIA T VISIT PHYS 25 MINUTES PERIODIC 41984 PATIENT LENY PITTMAN 8 8 FIRST KEVIN G E MED EST PHYS PATIENT 12-17YRS OFFICE 05336 PATIENT LYNNETTE FUNES 8 8 FIRST MABEL T VISIT PHYS 25 MINUTES OFFICE 95994 PATIENT LYNNETTE FUNES 8 8 FIRST MABEL T VISIT PHYS 15 MINUTES OFFICE 38309 PATIENT LYNNETTE PITTMAN 8 8 FIRST KEVIN G T VISIT PHYS 15 MINUTES
--- OUTSIDE RECORDS SUMMARY | 2017-03-25 05:31 | External Medical Summary Rpt | CCD ---
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 P[facility]TM[facility] IC 1 SHASHANK SHASHANK PROPHYLAC TIC/DX INJECTION SUBQ/IM URNLS DIP 13129 [facility] P[facility] 1 SHASHANK SHASHANK STICK/TAB LET RGNT NON-AUTO W/O MICRSCP 4VHPV 63160 TYOA VACCINE 3 1 STEVEN SHASHANK DOSE SCHEDULE PHYSICIAN FOR IM S USE 4VHPV 94347 [facility] VACCINE 3 1 STEVEN MIN DOSE SCHEDULE PHYSICIAN FOR IM S USE COLLECTIO 42819 [facility] N VENOUS 1 STEVEN MIN BLOOD VENIPUNCT PHYSICIAN URE S URINE 54783 KALFAS 1 STEVEN MIN TEST VISUAL PHYSICIAN COLOR S CMPRSN METHS GONADOTRO 19054 [facility] PIN 1 STEVEN STEVEN CHORIONIC MEDICALCE MEDICALCE QUANTITAT NTER NTER MELINA IADNA 49729 [facility] CHLAMYDIA 1 STEVEN STEVEN TRACHOMAT MEDICALCE MEDICALCE IS NTER NTER AMPLIFIED PROBE TQ CYTP C/V 57794 [facility] AUTO THIN 1 STEVEN STEVEN LYR PREPJ SCR MEDICALCE MEDICALCE MNL NTER NTER RESCR PHYS MOLEC 96739 [facility] ISOL/XTRJ 1 [facility] HP NUCLEIC MEDICALCE MEDICALCE ACID EA NTER NTER TYPE IADNA 29256 [facility] NEISSERIA 1 STEVEN STEVEN GONORRHOE MEDICALCE MEDICALCE AE NTER NTER AMPLIFIED PROBE TQ 4VHPV 22356 [facility] VACCINE 3 1 STEVEN SHASHANK DOSE SCHEDULE PHYSICIAN FOR IM S USE URINE 51413 [facility] SHE TEST VISUAL PHYSICIAN COLOR S CMPRSN METHS CULTURE 91629 [facility] BACTERIAL 0 [facility] QUANTTATI MEDICALCE MEDICALCE VE COLONY NTER NTER COUNT URINE GONADOTRO 98315 [facility] PIN 0 STEVEN STEVEN CHORIONIC MEDICALCE MEDICALCE QUANTITAT NTER NTER MELINA URINE 93017 MICHAEL 0 STEVEN SHE TEST VISUAL PHYSICIAN COLOR S CMPRSN METHS OPHTH 14773 MISA TAM, MEDICAL 0 STEPHON S SILVER M XM&EVAL COMPRE NEW PT 1/> VST FITTING 79276 CHRISTINA GREENE SPECTACLE 0 S XCPT APHAKIA MONOFOCAL SPHERE V2100 CHRISTINA GREENE SINGLE 0 VISION [place]ANO +/- 4.00 PER LENS OPHTH 02170 CHRISTINA VASQUEZ, MEDICAL 0 PETAR Lewis XM&EVAL COMPRHNSV ESTAB PT 1/> DETERMINA 37512 CHRISTINA VASQUEZ, TION 0 PETAR Lewis REFRACTIV E STATE FRAMES V2020 CHRISTINA JC CHRISTINA JC PURCHASES 0 INCISION 48126 PATIENT MICHAEL, & 9 FIRST LIDIA DRAINAGE PHYS ABSCESS SIMPLE/SI NGLE MCV4 98636 PATIENT RONAK PITTMANWY 8 FIRST KEVIN G CONJ VACC PHYS GRPS [id number] IM USE Encounters Encounter Start End Date Code Location Performer Type Date OFFICE 59643 [facility] STEVEN DICKENS T VISIT 15 PHYSICIAN MINUTES [facility] 7 [facility] Y[facility]EL - 7 7 [facility] 00785 [facility] DEPT 7 7 PHYSICIAN VISIT S, PLLC HIGH SEVERITY& THREAT FUNCJ EMERGENCY 15822 YOEL 7 7 [facility] DEPARTMEN INC T VISIT MODERATE SEVERITY OFFICE 63781 [facility] 7 STEVEN T [facility]ISIT 15 PHYSICIAN MINUTES [facility] YOEL - 6 6 [facility] OUTPATIEN INC T EMERGENCY 14836 YOEL 6 6 [facility] DEPARTMEN INC T VISIT LIMITED/M INOR PROB EMERGENCY 94441 CHELSI LANGSTON 6 6 [facility]URGE NT SEVERITY EMERGENCY 60476 CHELSI LANGSTON 6 6 PHYSICIAN [facility]UCK TOD[facility] PLL[facility] T VISIT MODERATE SEVERITY OFFICE 77223 [facility] 6 6 STEVEN JF T VISIT 15 PHYSICIAN MINUTES [facility] ST - 6 6 STEVEN OUTPATIEN MED CTR T [facility] OFFICE [address] [facility] [place] 6 6 STEVEN INDY T VISIT 15 PHYSICIAN MINUTES [facility] ST - 6 6 STEVEN OUTPATIEN MED CTR T TUBE BACKER [facility] YOEL - 5 5 [facility] INPATIENT INC OFFICE 49371 [facility] OUTPATIEN 5 5 PHYSICIAN ENA T VISIT S GROUP 15 MINUTES [facility] YOEL - 5 5 [facility] OUTPATIEN INC T OFFICE 93382 [facility] OUTPATIEN 5 5 PHYSICIAN ENA T VISIT S GROUP 15 MINUTES [facility] YOEL - 5 5 [facility] OUTPATIEN INC T OFFICE [facility] [facility] 5 5 STEVEN INDY T VISIT 15 PHYSICIAN MINUTES [facility] YOEL - 5 5 [facility] OUTPATIEN INC [facility] YOEL - 5 5 [facility] OUTPATIEN INC T OFFICE 30382 [facility] OUTPATIEN 5 5 PHYSICIAN ENA T VISIT S GROUP 15 MINUTES [facility] YOEL - 5 5 [facility] OUTPATIEN INC T OFFICE 67335 [facility] OUTPATIEN 5 5 PHYSICIAN ENA T VISIT S GROUP 15 MINUTES OFFICE 00599 [facility] 5 5 STEVEN CHRISSIE NIEVES T VISIT 25 PHYSICIAN MINUTES [facility] YOEL - 5 5 [facility] OUTPATIEN INC T OFFICE 29347 [facility] JULIUS OUTPATIEN 4 4 PHYSICIAN ENA T VISIT S GROUP 15 MINUTES [facility] ST - 4 4 STEVEN OUTPATIEN MED CTR T TUBE BACKER ST OFFICE 40794 ST [facility] OUTPATIEN 4 4 STEVEN SHASHANK T VISIT 15 PHYSICIAN MINUTES S OFFICE 14255 JULIUS [facility] OUTPATIEN 4 4 ENA ENA T VISIT 15 MINUTES [facility]OSP[facility] - 4 4 [facility] INPATIENT INC OFFICE 10050 J[facility]US [facility]ID OUTPATIEN 4 4 ENA ENA T VISIT 15 MINUTES [facility]OSPITAL [facility] - 4 4 [facility] OUTPATIEN INC T OFFICE 22285 JULIUS [facility]RID OUTPATIEN 4 4 ENA ENA T VISIT 15 MINUTES [facility]OS[facility] - 4 4 [facility] OUTPATIEN INC T OFFICE 08926 LILLIE MOREIRA OUTPATIEN 4 4 KENDELL KENDELL T VISIT 15 MINUTES OFFICE 89952 [facility] OUTPATI[facility] 4 4 JF JF T VISIT 15 MINUTES [facility] - 4 4 [facility] OUTPATIEN INC T OFFICE 83049 [facility] OUTPATIEN 4 4 ENA ENA T VISIT 5 MINUTES [facility]OSP[facility] - 4 4 [facility] OUTPATIEN INC T OFFICE 23225 J[facility]US [facility] OUTPATIEN 4 4 ENA ENA T VISIT 15 MINUTES [facility] - 4 4 [facility] OUTPATIEN INC T OFFICE 85988 [facility] OUTPATIEN 4 4 ENA ENA T VISIT 15 MINUTES OFFICE 25930 [facility] OUTPATIEN 4 4 ENA ENA T VISIT 15 MINUTES OFFICE 74565 GINNY OMREIRA OUTPATIEN 3 3 LILLIE RDZ T VISIT 15 MINUTES [facility] - 3 3 [facility] OUTPATIEN INC T OFFICE 41279 [facility] OUTPATIEN 3 3 ENA ENA T VISIT 15 MINUTES [facility] - 3 3 [facility] OUTPATIEN INC T OFFICE 78991 [facility] OUTPATIEN 3 3 ENA ENA T VISIT 15 MINUTES OFFICE 52206 [facility] 3 3 [facility] ENA T VISIT [facility]IN[facility] OF 15 SAROJ MINUTES [facility] - 2 2 [facility] INPATIENT INC OFFICE 38360 [facility] HARPEL OUTPATIEN 2 2 KENDELL KENDELL T VISIT 15 MINUTES OFFICE 65036 [facility] OUTPATIEN 2 2 ENA ENA T VISIT 5 MINUTES OFFICE 36617 HARPE[facility] HARPEL OUTPATIEN 2 2 KENDELL KENDELL T VISIT 15 MINUTES EMERGENCY 72726 [facility] 2 2 [facility] DEPARTMEN INC T VISIT HIGH/URGE NT SEVERITY [facility] - 2 2 [facility] OUTPATIEN INC [facility] YOEL - 2 2 [facility] OUTPATIEN INC T OFFICE 99681 [facility] OUTPATIEN 2 2 SHASHANK SHASHANK T VISIT 15 MINUTES OFFICE 28113 [facility] OUTPATI[facility] 2 2 JF JF T VISIT 15 MINUTES OFFICE 39465 [facility] PITTM[facility] OUTPATIEN 2 2 SHASHANK SHASHANK T VISIT 15 MINUTES OFFICE 68801 [facility] OUTPATI[facility] 2 2 JF JF T VISIT [address] - 1 1 STEVEN OUTPATIEN T MEDICALCE NTER OFFICE 13016 [facility] OUTPATIEN 1 1 SHASHANK SHASHANK T VISIT 15 MINUTES OFFICE 17686 [facility] PITTM[facility] OUTPATIEN 1 1 SHASHANK SHASHANK T VISIT [address] [facility] OUTPATIEN 1 1 STEVEN JF T VISIT 15 PHYSICIAN MINUTES S OFFICE 95021 [facility] PENDE[facility]TO OUTPATIEN 1 1 N CO N CO T [address] [facility] OFFICE [address] ST [facility] OUTPATIEN 1 1 STEVEN SHASHANK T VISIT 15 PHYSICIAN MINUTES S OFFICE 56316 ST [facility] OUTPATIEN 1 1 STEVEN SHE T VISIT [address] - 1 1 STEVEN OUTPATIEN T MEDICALCE [facility] PERIODIC [address] [facility] PREVENTIV 1 1 STEVEN SHASHANK E MED EST PATIENT PH[facility]IC[facility] [id number] STEVEN OUTPATIEN T [facility] - 0 0 STEVEN OUTPATIEN T MEDICALCE [facility] OFFICE 92423 ST MICHAEL OUTPATIEN 0 0 STEVEN SHE T VISIT 25 PHYSICIAN MINUTES S OFFICE 68159 ST MICHAEL OUTPATIEN 0 0 STEVEN SHE T VISIT 25 PHYSICIAN MINUTES [facility] ST - 0 0 STEVEN OUTPATIEN T MEDICALCE NT OFFICE 06865 ST [facility], OUTPATIEN 0 0 STEVEN KEVIN G T VISIT 15 PHYSICIAN MINUTES S OFFICE 73109 ST [facility] OUTPATI[facility] 0 0 STEVEN KEVIN G T VISIT 15 PHYSICIAN MINUTES S OFFICE 68719 [facility] OUT[facility] 0 0 MEDICAL MABEL T VISIT GROUP [address] [facility] OUTPATI[facility] 0 0 STEVEN KEVIN G T VISIT 15 PHYSICIAN MINUTES S OFFICE 89871 PATIENT KALFAS OUTPATIEN 9 9 FIRST SUSANNA C T VISIT PHYS 15 MINUTES OFFICE 15988 PATIENT LYNNETTE FUNES 9 9 FIRST MABEL T VISIT PHYS 15 MINUTES OFFICE 89445 PATIENT LYNNETTE MICHAEL 9 9 FIRST LIDIA T VISIT PHYS 25 MINUTES PERIODIC 73529 PATIENT LENY PITTMAN 8 8 FIRST KEVIN G E MED EST PHYS PATIENT 12-17YRS OFFICE 14983 PATIENT LYNNETTE FUNES 8 8 FIRST MABEL T VISIT PHYS 25 MINUTES OFFICE 87697 PATIENT LYNNETTE FUNES 8 8 FIRST MABEL T VISIT PHYS 15 MINUTES OFFICE 11671 PATIENT LYNNETTE PITTMAN 8 8 FIRST KEVIN G T VISIT PHYS 15 MINUTES
--- OUTSIDE RECORDS SUMMARY | 2017-03-25 05:31 | External Medical Summary Rpt | CCD ---
Author Author , STEPHANIE Organization STEPHANIE Address Unknown Phone [email or web address] Care Team Providers Care Counter Top Maker Name Role Phone DAHIANA PUTNAM, Unavailable Unavailable JULIUS ABAD Unavailable Unavailable CH, JULIUS Unavailable Unavailable [facility] Unavailable Unavailable [place], [facility] Unavailable Unavailable [place], [facility] Unavailable Unavailable [facility] NAUN YUNG, Unavailable Unavailable NAUN YUNG [id number], Unavailable Unavailable [id number] CHRISTINA POLLARD JAM Unavailable Unavailable CHRISTINA JC, CHRISTINA JAM Unavailable Unavailable CHRISTINA GREENE CHRISTINA JAM Unavailable Unavailable PETAR VASQUEZ, Unavailable Unavailable PETAR VASQUEZ HOWELL M, Unavailable Unavailable SILVER TAM MD, Unavailable Unavailable JAMES LYNN MD Unavailable Unavailable HARPEL KENDELL, HARPEL Unavailable Unavailable KENDELL HARPEL KENDELL, HARPEL Unavailable Unavailable [facility] Un[facility], [facility], Unavailable Unavailable [facility] KALFAS MIN, KALFAS Unavailable Unavailable MIN KALFAS, SUSANNA C, Unavailable Unavailable KALFAS, SUSANNA C [facility] Unavailable Unavailable [facility], [facility] CHRISSIE JR, CHRISSIE JR [...] CAM [facility] Un[facility] Un[facility]available Unavailable [facility], [facility] Unavailable Unavailable [facility], [facility] [...] STEVEN AGNT CAUSE PHYSICIANS DZ CLASSIFIED ELSW [id number] MIGRAINE 02-02-2017 ST W/O AURA STEVEN NOT INTRACT PHYSICIANS W/O STAT MIGRAIN J0190 ACUTE 02-02-2017 ST SINUSITIS STEVEN UNSPECIFIED PHYSICIANS Z6841 BODY MASS 02-02-2017 ST INDEX BMI STEVEN 40.0-44.9 PHYSICIANS ADULT N912 AMENORRHEA 11-21-2016 ST UNSPECIFIED [facility] R05 COUGH 10-15-2016 [facility] R0602 SHORTNESS 10-15-2016 [facility] B349 VIRAL 06-14-2016 ST INFECTION STEV[facility] UNSPECIFIED PHYSICIANS R1013 EPIGASTRIC 06-14-2016 ST PAIN STEV[facility] PHYSICIANS J020 STREPTOCOCC 05-03-2016 [facility] PH[facility]NG[facility] J0300 ACUTE 05-03-2016 [facility] TONSILLITIS UNSPECIFIED H6693 OTITIS 02-20-2016 CHELSI MEDIA [...] ST STEVEN PHYSICIANS N3001 ACUTE 10-06-2015 [facility] [place] [facility]ANS HEMATURIA O3421 MATERNAL 06-07-2015 [facility] CARE SCAR PHYSICIANS PREVIOUS GROUP DELIVERY O655 OBSTRUCTED 06-07-2015 [facility] ABNORMAL INC MAT PELVIC ORGANS Z302 ENCOUNTER 06-07-2015 [facility] FOR PHYSICIANS SOLOMON AGEE ON Z370 SINGLE LIVE 06-07-2015 [facility] PH[facility]ANS GROUP Z3A39 39 WEEKS 06-07-2015 [facility] GESTATION PHYSICIANS OF GROUP Z3480 ENC 05-27-2015 [facility] SUPERVISION PHYSICIANS OTH NORMAL GROUP PREG UNS TRIMESTER M34846 OTHER SPEC 05-22-2015 [facility] RELATED INC COND 3RD TRIMESTER O4703 FALSE LABOR 05-22-2015 GINNY R BEFORE 37 LILLIE MAC CMPLETE WEEKS GEST 3RD TRI Z3A37 37 WEEKS 05-22-2015 [facility] OF INC F52439 OTHER ACUTE 05-11-2015 [facility] NONSUPPURAT PHYSICIANS MELINA OTITIS MEDIA RT EAR J029 ACUTE 05-11-2015 PHARYNGITIS STEVEN PHYSICIANS UNSPECIFIED O6003 05-03-2015 [facility] LABOR PHYSICIANS WITHOUT GROUP DELIVERY THIRD TRIMESTER Z3A34 34 WEEKS 05-03-2015 [facility] INC I18059 ABNORMAL 04-30-2015 [facility] GLUCOSE PHYSICIANS COMPLICATIN GROUP G [id number] MATERNAL 04-26-2015 [facility] CARE EXCESS PHYSICIANS GROUP GROWTH 3RD TRI NA/UNS [id number] DECREASED 04-22-2015 [facility] MOVEMENTS INC THIRD TRIMESTER NA/UNS O4702 FALSE LABOR 04-22-2015 GINNY R BEFORE 37 LILLIE MAC CMPLETE WEEKS GEST 2ND TRI Z3A33 33 WEEKS 04-22-2015 [facility] OF INC V221 SUPERVISION 02-02-2015 [place] [facility] MEDICAL NORMAL IM[facility]ING [facility] 56901 OTHER 12-08-2014 [facility] SPECIFED PHYSICIANS COMPLICATIO GROUP N ANTEPARTUM 4610 ACUTE 11-25-2014 ST MAXILLARY [facility] SINUSITIS PHYSICIANS V222 11-25-2014 STATE, STEVEN INCIDENTAL PHYSICIANS V745 SCREENING 11-24-2014 [facility] FOR VENEREAL DISEASE V2502 GENERAL 05-28-2014 [facility] CNSL PHYSICIANS INITIATION GROUP OTH CONTRACEPT MEASURES V2509 OT GENERAL 05-28-2014 [facility] PHYSICIANS CNSL&ADVICE GROUP CONTRACEPT MANAGEMENT V2542 SURVEILLANC 05-28-2014 [facility] E PREV PRSC PHYSICIANS INTRAUTERN GROUP CNTRACPT DEVC 94335 OBESITY, 05-19-2014 ST UNSPECIFIED [facility]EN MED CTR [facility] 1121 CANDIDIASIS 05-11-2014 ST OF VULVA STEV[facility] AND VAGINA PHYSICIANS 3829 UNSPECIFIED 05-11-2014 ST OTITIS STEVEN MEDIA PHYSICIANS 4739 UNSPECIFIED 05-11-2014 ST SINUSITIS STEVEN PHYSICIANS 4779 ALLERGIC 05-11-2014 ST RHINITIS STEVEN CAUSE PHYSICIANS UNSPECIFIED 68918 ESOPHAGEAL 05-11-2014 ST REFLUX STEVEN PHYSICIANS 58632 MATERNAL 11-05-2013 JULIUS SUTHERLAND MENTAL D/O COND/COMPLI CATION V2511 ENC FOR 10-10-2013 JULIUS ENA INSERTION INTRAUTERIN E CONTRACEPT DEVICE 09142 PREV C/S 08-29-2013 [facility] DELIV [facility]IV [facility] W/WO INC MENTION ANTPRTM COND 31193 C/S DELIV 08-29-2013 HARPEL KENDELL W/O INDICAT DELIV W/WO ANTPRTM COND V270 OUTCOME OF 08-29-2013 [facility] DELIVERY [facility] SINGLE INC LIVEBORN 14087 THREATENED 08-20-2013 [facility] LABOR INC ANTEPARTUM 26978 EXCESS 08-12-2013 JULIUS ENA GROWTH AFFECT MGMT MOTH ANTPRTM 30855 OTHER 08-05-2013 HARPEL KENDELL THREATENED LABOR, ANTEPARTUM 29562 ABNORMAL 07-11-2013 JULIUS ENA MATERNAL GLUCOSE TOLERANCE ANTEPARTUM 97792 THREATENED 07-10-2013 EVER PREMATURE CO LABOR AMBULANCE UNSPEC TAXIN EPIS CARE V283 ENCOUNTER 04-17-2013 JULIUS ENA ROUTINE SCREEN MALFORMATIO N ULTRASONIC 09679 UNSPECIFIED 03-26-2013 JULIUS ENA VAGINITIS AND VULVOVAGINI TIS V242 ROUTINE 02-05-2012 PATHOLOGY & CYTOLOGY FOLLOW-UP LAB 09214 FETOPELVIC 01-02-2012 [facility] DISPROPORTI [facility] ON, INC DELIVERED 00010 OBSTRUCTION 01-02-2012 [facility] PELVIS INC DURING L&D DELIVERED 42296 UNSPECIFIED 01-02-2012 COMMUNITY FAILED ANESTH OF TRIAL OF THE BLUE LABOR DELIVERED 47377 OTHER AND 01-02-2012 [facility] UNSPECIFIED [facility] UTERINE INC INERTIA W/DELIVERY 82795 DECR 12-31-2011 JULIUS ENA MOVMNTS MGMT MOTH ANTPRTM COND/COMP V220 SUPERVISION 12-08-2011 [facility]ED OF NORMAL PHYSICIANS FIRST [place] 6268 OTH D/O 08-01-2011 RAMIREZ LIZ MENSTRUATIO N&OTH ABN BLEED FE GNT TRACT 95674 UNSPEC 08-01-2011 [facility]EMORRHAGE [facility] EARLY INC ANTEPARTUM 4659 ACUTE URIS 07-12-2011 TOYA SHASHANK OF UNSPECIFIED SITE 84171 UNSPECIFIED 07-12-2011 TOYA SHASHANK CONSTIPATIO N 13019 NAUSEA 07-04-2011 SCHACK JF ALONE V7231 ROUTINE 06-28-2011 PATHOLOGY & GYNECOLOGIC CYTOLOGY AL LAB EXAMINATION 5368 DYSPEPSIA&O 06-19-2011 TOYA SHASHANK THER SPEC DISORDERS FUNCTION STOMACH 6260 ABSENCE OF 06-13-2011 SCHACK JF MENSTRUATIO N 2859 UNSPECIFIED 05-24-2011 [place] [address] OTHER 05-24-2011 ST MALAISE [facility] V2501 GENERAL 05-24-2011 TOYA SHASHANK COUNSELING PRESCRIPTIO N ORAL CONTRACEPTS 5693 HEMORRHAGE 04-14-2011 TOYA SHASHANK OF RECTUM AND ANUS 85780 URINARY 04-14-2011 TOYA SHASHANK FREQUENCY V0489 NEED PROPH 01-05-2011 ST VACCINATION STEVEN &INOCULAT PHYSICIANS OT VIRAL DZ V741 SCREENING 11-04-2010 [facility] EXAMINATION [facility] PULMONARY TUBERCULOSI S 4619 ACUTE 09-01-2010 ST SINUSITIS, STEVEN UNSPECIFIED PHYSICIANS 44678 ABDOMINAL 09-01-2010 ST PAIN, STEVEN UNSPECIFIED PHYSICIANS SITE 6235 LEUKORRHEA 06-15-2010 ST NOT [place] SPECIFIED PHYSICIANS INFECTIVE V202 ROUTINE 06-15-2010 INFANT OR [place] CHILD PHYSICIANS HEALTH CHECK 6264 IRREGULAR 04-19-2010 MENSTRUAL [place] CYCLE PHYSICIANS 7881 DYSURIA 04-19-2010 [facility] PHYSICIANS 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 3670 HYPERMETROP 12-08-2009 NNEKA VASQUEZ 6829 CELLULITIS 09-09-2009 [facility] OF GROUP UNSPECIFIED SITE 5990 URINARY 08-04-2009 TRACT [place] INFECTION PHYSICIANS SITE NOT SPECIFIED 4871 INFLUENZA 03-10-2009 PATIENT WITH OTHER FIRST PHYS RESPIRATORY MANIFESTATI ONS 7099 UNSPECIFIED 08-19-2008 PATIENT DISORDER FIRST PHYS OF SKIN&SUBCUT ANEOUS TISSUE V0389 NEED PROPH 01-10-2008 PATIENT VACC FIRST PHYS AGAINST OTH SPEC VACC 19620 ASTHMA 10-24-2007 PATIENT UNSPECIFIED FIRST PHYS WITH EXACERBATIO N 0340 STREPTOCOCC 09-09-2007 PATIENT AL SORE FIRST PHYS THROAT 58096 UNSPECIFIED 07-22-2007 PATIENT VIRAL FIRST PHYS INFECTION [...] MA MG CY TA #5 BL ET TX 00 08 09 60 30 00 TO [...] 16 04 05 30 30 00 TO [facility] 71 -2 -2 .0 00 TA ti TA 40 4- 6- 00 00 L ve DI 48 20 20 92 CA NE 20 17 17 86 RE 3 03 10 PH AR MG MA CY TA BL #5 ET FL 16 02 03 1. 1 00 TO [facility] [place] 71 -1 -1 00 00 TA ti [...] 53 20 20 R 01 11 11 DE 4 CH AE L G 00 08 [...] 53 20 20 R 01 11 11 DE 4 CH AE L G LO 51 05 08 3 90 90 76 SC Ac RA 66 -0 -2 .0 33 CLEMENTS ti TA 00 18 FE ve DI 52 20 20 R NE 60 11 11 DE 5 CH 10 AE L MG G TA BL ET 00 01 07 11 28 28 75 SC Ac 43 -0 -2 .0 21 CLEMENTS ti 00 46 FE ve 53 20 20 R 01 11 11 DE 4 CH AE L G ME 50 07 07 0 14 7 76 SC Ac TR 11 -2 -2 .0 98 CLEMENTS ti ON 10 26 FE ve ID 33 20 20 R AZ 40 11 11 DE OL 1 CH E AE 50 L 0 G MG TA BL ET FL 00 07 07 0 1. 1 76 SC Ac UC 17 -2 -2 00 98 CLEMENTS ti ON 25 8 8- 0 27 FE ve AZ 41 20 20 R OL 21 11 11 DE E 1 CH 15 AE 0 L MG G TA BL ET 00 06 11 28 28 75 SC Ac 43 -0 -2 .0 21 CLEMENTS ti 00 46 FE ve 53 20 20 R 01 11 11 DE 4 CH AE L G FL 00 05 05 6 16 30 76 SC Ac UT 05 -0 -0 .0 33 CLEMENTS ti IC 43 00 17 FE ve 27 20 20 R ON 09 11 11 DE E 9 CH TX AE OP L G 50 MC G SP RA Y LO 51 05 05 3 90 90 76 SC Ac RA 66 -0 -0 .0 33 CLEMENTS ti TA 00 18 FE ve DI 52 20 20 R NE 60 11 11 DE 5 CH 10 AE L MG G TA BL ET AZ 59 05 05 0 6. 5 76 SC Ac IT 76 -0 -0 00 33 CLEEMNTS ti HR 23 9- 9- 0 19 FE ve OM 06 20 20 R YC 00 11 11 DE IN 1 CH AE 25 L 0 G MG TA BL ET 00 01 04 11 28 28 75 SC Ac 43 -0 -1 .0 21 CLEMENTS ti 00 5- 6- 00 46 FE ve 53 20 20 R 01 11 11 DE 4 CH AE L G FL 00 [...] 53 20 20 R 01 11 11 DE 4 CH AE L G 00 01 02 11 28 28 75 SC Ac 43 -0 -1 .0 21 CLEMENTS ti 00 00 46 FE ve 53 20 20 R 01 11 11 DE 4 CH AE L G ME 50 01 01 0 21 7 75 SC Ac TR 11 -0 -0 .0 21 CLEMENTS ti ON 10 43 FE ve ID 33 20 20 R AZ 40 11 11 DE OL 1 CH E AE 50 L 0 G MG TA BL ET 00 01 01 11 28 28 75 SC Ac 43 -0 -0 .0 21 CLEMENTS ti 00 00 46 FE ve 53 20 20 R 01 11 11 DE 4 CH AE L G FL 00 01 01 0 1. 1 75 SC Ac UC 17 -0 -0 00 21 CLEMENTS ti ON 25 5- 5- 0 47 FE ve AZ 41 20 20 R OL 21 11 11 DE E 1 CH 15 AE 0 L MG G TA BL ET FL 00 06 06 0 1. 1 73 SC Ac UC 17 -0 -0 00 43 CLEMENTS ti ON 25 3- 3- 0 08 FE ve AZ 41 20 20 R OL 21 10 10 DE E 1 CH 15 AE 0 L MG G TA BL ET ME 50 06 06 0 14 7 73 SC Ac TR 11 -0 -0 .0 43 CLEMENTS ti ON 10 3- 3- 00 09 FE ve ID 33 20 20 R AZ 40 10 10 DE OL 1 CH E AE 50 L [...] 00 10 5 CV 50 KA Ac DE 00 -3 -0 .0 S 75 LF ti FL 40 0- 8- 00 PH 31 ve U 80 20 20 AR 75 08 09 09 MA DE 5 CY NA MG C #5 CA [...] Procedure DOS Code Location Performer Comment GONADOTRO [address] [facility] EDGE E EDGE VE BLOOD 14776 [facility] COUNT 7 [facility] COMPLETE INC INC AUTO&[place] [address] Y[facility] TROPONIN 7 MEM [facility] QUANTITAT INC INC MELINA RADIOLOGI 94396 Y[facility] C EXAM 7 [facility] CHEST 2 INC INC VIEWS FRONTAL&L ATERAL URNLS DIP 08519 [facility]EL [facility] STICK/TAB INC INC LET REAGENT AUTO MICROSCOP Y URINE 77718 YOELANDRZEJ DIALLO 7 [facility] TEST INC INC VISUAL COLOR CMPRSN METHS COMPREHEN 98212 [facility] SIVE 7 [facility] METABOLIC INC INC PANEL CREATINE 52581 [facility] KINASE MB 7 MEM H[facility] FRACTION INC INC ONLY FIBRIN 75760 YOEL YOEL DGRADJ 7 [facility] PRODUCTS INC INC D-DIMER QUAL/SEMI RUTH CREATINE 26967 [facility] KINASE 7 [facility] TOTAL INC INC ECG 03308 [facility] ROUTINE 7 [facility] ECG INC INC W/LEAST 12 LDS TRCG ONLY W/O I&R ECG 41728 YOEL DICKENS JR ROUTINE 7 [facility] W/LEAST P 12 LDS I&R ONLY IAADI 69801 Y[facility] INFFLUENZ 6 [facility] A A VIRUS INC INC IAADI 74940 [facility] INFLUENZA 6 [facility] [place] [address] YOEL DIALLO STREPTOCO 6 [facility] CCUS INC INC GROUP A DETERMINA 04913 CHRISTINA GREENE TION 6 REFRACTIV E STATE OPHTH 93514 CHRISTINA GREENE MEDICAL 6 XM&EVAL COMPRE NEW PT 1/> VST SUSCEPTIB [address] LTY STDY 6 STEVEN STEVEN ANTIMICRB MED CTR MED CTR IAL [facility] B[facility] ST MICRO/AGA R DILUTJ CULTURE [address] BACTERIAL 6 STEVEN [facility] MED [facility] MED CTR QUANTTATI [facility] VE COLONY COUNT URINE CULTURE [address] BCT 6 STEVEN STEVEN ISOL&PRSM MED CTR MED CTR PTV ID [facility] ST ISOLATE EA URINE CULTURE [address] [facility] [address] BCT 6 [facility] ISOL&PRSM MED CTR MED CTR PTV ID [facility]IL[facility] ISOLATE EA URINE CULTURE 72458 ST ST BACTERIAL 6 [facility] MED CTR QUANTTATI BILLET [facility] BILLET [facility] VE COLONY COUNT URINE SUSCEPTIB [address] LTY STDY 6 [facility] ANTIMICRB MED CTR MED CTR IAL BILLET SHE[facility] BILLET [facility] ST MICRO/AGA R DILUTJ ANESTHESI 89725 [facility] THI A 5 ANESTH LEONARD OF THE DELIVERY BLUE ONLY LIG/TRNSX 44506 [facility] J 5 PHYSICIAN PHYSICIAN FALOPIAN S GROUP S GROUP TUBE DEL/ABDML SURG 90925 [facility] SCHULSTAD DELIVERY 5 PHYSICIAN CAM ONLY S GROUP 87144 [facility] MADRID DELIVERY 5 PHYSICIAN ENA ONLY S GROUP W/POSTPAR JOLLY CARE OCCLUSION [id number] [facility] DANO 5 [facility] FALLOPIAN INC INC TUBES EXTRALUM DEV OPEN EXTRACTIO [id number] [facility] N PRODUCT 5 [facility] [place] [address] GINNY MOREIRA NONSTRESS 5 LILLIE MAC KENDELL TEST URNLS DIP 19206 [facility]O 5 [facility] STICK/TAB INC INC LET REAGENT AUTO MICROSCOP Y PARTICLE 17425 [facility] AGGLUTINA 5 [facility] TION INC INC SCREEN EACH ANTIBODY IAADIADOO [address]77 ST TALBOT 5 STEVEN INDY [place]OC[place] [address] Y[facility] INFUSION 5 [facility] THERAPY/P INC INC ROPHYLAXI S /DX 1ST TO 1 HR FTL 12410 [facility] FIBRONECT 5 [facility] IN INC INC CERVICOVA G SECRETION S SEMI-RUTH URNLS DIP 54057 [facility] DIALLO 5 [facility] STICK/TAB INC INC LET REAGENT AUTO MICROSCOP Y 02516 [facility] NONSTRESS 5 [facility] TEST INC INC CULTURE 65030 Y[facility] DI[facility]O BACTERIAL 5 [facility] INC INC QUANTTATI VE COLONY COUNT URINE GLUCOSE 32183 [facility] POST 5 PHYSICIAN PHYSICIAN GLUCOSE S GROUP S GROUP DOSE 29783 [facility] JULIUS BIOPHYSIC 5 PHYSICIAN ENA AL S GROUP PROFILE W/O NON-STRES S TESTING US PREG 90759 [facility] MADRID UTERUS 5 PHYSICIAN ENA REAL TIME S GROUP F/U TRNSABDL PER FETUS DOPPLER 33422 [facility] VELOCIMET 5 PHYSICIAN [place] [address] YOEL DIALLO INFUSION 5 [facility] THERAPY/P INC INC ROPHYLAXI S /DX 1ST TO 1 HR FTL 78747 [facility] FIBRONECT 5 [facility] IN INC INC CERVICOVA G SECRETION S SEMI-RUTH URNLS DIP 39853 [facility] DIALLO 5 [facility] STICK/TAB INC INC LET [place]AGENT [place]CROSCOP Y 50601 [facility] NONSTRESS 5 [facility] TEST INC INC CULTURE 03978 Y[facility] BACTERIAL 5 [facility] INC INC QUANTTATI [place] PREG 05537 [facility] UTERUS 5 [facility] W/DETAIL INC INC JOHNATHAN GESTATION US PREG 40538 [place] NA[place] UTERUS 5 MEDICAL YUNG AFTER 1ST IMAGING [place] 61655 [facility] M[facility]ID UTERUS 5 PHYSICIAN ENA REAL TIME S GROUP W/IMAGE DCMTN TRANSVAG CYTP C/V 90427 [facility] AUTO THIN 5 [facility] ER JR SUELLEN LYR PREPJ SCR MNL RESCR PHYS IADNA 80302 [facility], [facility] CHLAMYDIA 5 [facility] ER JR SUELLEN TRACHOMAT IS AMPLIFIED PROBE TQ OBSTETRIC 60960 [facility] PANEL 5 [facility] INC INC IADNA 51532 [facility], [facility] NEISSERIA 5 LLC ER JR SUELLEN GONORRHOE AE AMPLIFIED PROBE TQ COLLECTIO 09740 [facility] N VENOUS 5 [facility] BLOOD INC INC VENIPUNCT URE INF AGT G0432 [facility] AB DETECT 5 [facility] EIA TECH INC INC HIV-1&/HI V-2 SCR REMOVAL 40839 [facility] JULIUS INTRAUTER 4 PHYSICIAN ENA INE S GROUP DEVICE IUD LIPID [address] PANEL 4 STEVEN ST[facility] MED [facility] MED CTR [facility] BASIC [address] METABOLIC 4 [facility] PANEL MED CTR MED CTR CALCIUM BILLET [facility] [place] [address] THYROID 4 [facility] STIMULATI MED CTR MED CTR NG BILLET SHEARER [facility] BILLET SHEARER ST HORMONE TSH LEVONORGE J7302 JULIUS MADRID STREL-RLS 4 ENA ENA E INTRAUTER N CNTRACPT 52 MG INSERTION 63759 JULIUS MADRID 4 ENA ENA INTRAUTER INE DEVICE IUD URINE 20158 JUL[facility]US MADRID 4 ENA ENA TEST VISUAL COLOR CMPRSN METHS 43866 HARPEL HARPEL DELIVERY 4 KENDELL KENDELL ONLY 04783 [facility] DELIVERY 4 ENA ENA ONLY W/POSTPAR JOLLY CARE LOW 741 [facility] CERVICAL 4 [facility] INC INC SECTION EVAL C/V 06460 [facility] AMNIOTIC 4 [facility] FLUID INC INC PROTEIN QUAL EA SPECIMEN 75205 [facility] NONSTRESS 4 ENA ENA TEST IAADI 94182 [facility] INFLUENZA 4 [facility] B VIRUS INC INC IAADI 61635 [facility] INFFLUENZ 4 [facility] A A VIRUS INC INC URNLS DIP 25933 [facility] DIALLO 4 [facility] STICK/TAB INC [place] [address] [facility] INFUSION 4 [facility] THERAPY/P INC INC ROPHYLAXI S /DX 1ST TO 1 HR 10058 [facility] BIOPHYSIC 4 ENA ENA AL PROFILE W/O NON-STRES S TESTING US PREG 41602 [facility] UTERUS 4 ENA ENA REAL TIME F/U TRNSABDL PER FETUS DOPPLER 06736 [facility] VELOCIMET 4 ENA ENA RY UMBILICAL ARTERY 36406 J[facility] NONSTRESS 4 ENA ENA TEST CUL BACT 16341 COMBINED COMBINED XCPT 4 PHYSICIAN PHYSICIAN URINE S LA S LA BLOOD/STO OL AEROBIC ISOL 31935 HARPEL HARPEL NONSTRESS 4 KENDELL KENDELL TEST EVAL C/V 81431 [facility] AMNIOTIC 4 [facility] FLUID INC INC PROTEIN QUAL EA SPECIMEN URNLS DIP 96804 [facility] DIALLO 4 [facility] STICK/TAB INC INC LET REAGENT AUTO MICROSCOP Y URNLS DIP 79205 [facility] DIALLO 4 [facility] STICK/TAB INC INC LET REAGENT AUTO MICROSCOP Y FTL 99482 [facility] FIBRONECT 4 [facility] IN INC INC CERVICOVA G SECRETION S SEMI-RUTH EVAL C/V 39955 [facility] AMNIOTIC 4 [facility] FLUID INC INC PROTEIN QUAL EA SPECIMEN 09932 [facility] NONSTRESS 4 [facility] TEST INC INC THERAPEUT 72579 [facility] IC 4 [facility] PROPHYLAC INC INC TIC/DX INJECTION SUBQ/IM GLUCOSE 48912 [facility] TOLERANCE 4 ENA ENA TEST GTT 3 SPECIMENS COLLECTIO 73814 JULIUS MADRID N 4 ENA ENA CAPILLARY BLOOD SPECIMEN GROUND A0425 EVER EVER MILEAGE 4 CO CO PER AMBULANCE AMBULANCE STATUTE TAXIN TAXIN MILE AMBULANCE A0429 EVER EVER SERVICE 4 CO CO BLS AMBULANCE AMBULANCE EMERGENCY TAXIN TAXIN TRANSPORT THERAPEUT 24102 [facility] IC 4 [facility] PROPHYLAC INC INC TIC/DX INJECTION SUBQ/IM CULTURE 70628 [facility] BACTERIAL 4 [facility] INC INC QUANTTATI VE COLONY COUNT URINE 20830 [facility] NONSTRESS 4 [facility] TEST INC INC EVAL C/V 90081 [facility] AMNIOTIC 4 [facility] FLUID [place] [address] Y[facility]O INFUSION 4 [facility] THERAPY INC [place] [address] Y[facility] FIBRONECT 4 [facility] IN INC INC [place]ERV[place] [address] Y[facility] INFUSION 4 [facility] THERAPY/P INC INC ROPHYLAXI S /DX 1ST TO 1 HR URNLS DIP 22414 [facility] DIALLO 4 [facility] STICK/TAB INC INC LET REAGENT AUTO MICROSCOP Y URNLS DIP 92137 [facility] DIALLO 3 [facility] STICK/TAB INC INC LET REAGENT AUTO MICROSCOP Y FTL 75892 [facility] FIBRONECT 3 [facility] IN INC INC CERVICOVA G SECRETION S SEMI-RUTH 32357 YO[facility] NONSTRESS 3 [facility] TEST INC INC CULTURE 82508 YO[facility]ALL[facility] BACTERIAL 3 [facility] INC INC QUANTTATI VE COLONY COUNT URINE 91092 YOEL DIALLO NONSTRESS 3 [facility] TEST INC INC URNLS DIP 22176 [facility]ALL[facility] STICK/TAB INC INC LET REAGENT AUTO MICROSCOP Y US PREG 45879 JULIUS MADRID UTERUS 3 ENA ENA AFTER 1ST TRIMEST GESTATION SMR PRIM 41100 JULIUS MADRID SRC WET 3 ENA EAN MOUNT NFCT AGT US PREG 19367 WOMEN'S JULIUS UTERUS 3 HEALTH ENA REAL TIME CLINIC OF W/IMAGE SAROJ DCMTN TRANSVAG ANTIBODY 45445 COMBINED COMBINED CHLAMYDIA 3 PHYSICIAN PHYSICIAN S LA S LA CUL BACT 92632 COMBINED COMBINED XCPT 3 PHYSICIAN PHYSICIAN URINE S LA S LA BLOOD/STO OL AEROBIC ISOL CYTP C/V 38016 PATHOLOGY PICKLESIM AUTO THIN 2 & ER JR SUELLEN LYR CYTOLOGY PREPJ SCR LAB MNL RESCR PHYS 39320 HARPEL HARPEL DELIVERY 2 KENDELL KENDELL ONLY ANES 96998 [facility] THI CESARN 2 ANESTH LEONARD DLVR FLWG OF THE BLUE NEURAXIAL LABOR ANALG/ANE S 76362 JULIUS MADRID DELIVERY 2 ENA ENA ONLY W/POSTPAR JOLLY CARE NEURAXIAL 32540 [facility] AUDELIA KATERYNA LABOR 2 ANESTH ANALG/ANE OF THE S PLND BLUE VAGINAL DELIVERY LOW 741 YOEL DIALLO CERVICAL 2 [facility] INC INC SECTION 77761 JULIUS MADRID NONSTRESS 2 ENA ENA TEST CUL BACT 76192 COMBINED COMBINED XCPT 2 PHYSICIAN PHYSICIAN URINE S LA S LA BLOOD/STO OL AEROBIC ISOL 29487 HARPEL HARPEL NONSTRESS 2 KENDELL KENDELL TEST GROUND A0425 EVER EVER MILEAGE 2 CO CO PER AMBULANCE AMBULANCE STATUTE TAXIN TAXIN MILE AMBULANCE A0429 EVER EVER SERVICE 2 CO CO BLS AMBULANCE AMBULANCE EMERGENCY TAXIN TAXIN TRANSPORT GLUCOSE 96084 JULIUS MADRID TOLERANCE 2 ENA ENA TEST GTT 3 SPECIMENS 54438 HARPEL HARPEL NONSTRESS 2 KENDELL KENDELL TEST US PREG 49675 JULIUS MADRID UTERUS 2 ENA ENA AFTER 1ST TRIMEST / GESTATION BLOOD 32140 YOEL DIALLO COUNT 2 [facility] COMPLETE INC INC AUTO&AUTO DIFRNTL WBC URNLS DIP 83604 [facility]EL [facility]ALLO 2 [facility] STICK/TAB INC INC LET REAGENT AUTO MICROSCOP Y GONADOTRO 03690 YOEL DIALLO PIN 2 [facility] CHORIONIC INC INC QUANTITAT MELINA BASIC 39084 YOEL DIALLO METABOLIC 2 [facility] PANEL INC INC CALCIUM TOTAL GONADOTRO 99068 YOEL DIALLO PIN 2 [facility] [place] [address] YOEL DIALLO ESTRIOL 2 [facility] INC INC ALPHA-FET 19301 YOEL DIALLO OPROTEIN 2 [facility] SERUM INC INC [place] PREG 04040 JULIUS MADRID UTERUS 2 ENA ENA REAL TIME W/IMAGE DCMTN TRANSVAG CYTP C/V 26957 PATHOLOGY PICKLESIM AUTO THIN 2 & ER JR SUELLEN LYR CYTOLOGY PREPJ SCR LAB MNL RESCR PHYS IADNA 26700 PATHOLOGY PICKLESIM CHLAMYDIA 2 & ER JR SUELLEN CYTOLOGY TRACHOMAT LAB IS AMPLIFIED PROBE TQ IADNA 37640 PATHOLOGY PICKLESIM NEISSERIA 2 & ER JR SUELLEN CYTOLOGY GONORRHOE LAB AE AMPLIFIED PROBE TQ URINE 94845 MARIN FUNES 2 JF JF TEST V[place] [address] [facility] FOLIC 1 [facility] ACID SERUM [place] [address] [facility] IRON 1 STEVEN STEVEN MEDICALCE MEDICALCE NTER NTER BLOOD 47993 [facility] COUNT 1 [facility] COMPLETE AUTO&AUTO MEDICALCE MEDICALCE DIFRNTL NTER NTER WBC IRON 92874 [facility] BINDING 1 STEVEN STEVEN CAPACITY MEDICALCE MEDICALCE NTER NTER CYANOCOBA 18656 [facility] FLAKO 1 [facility] VITAMIN B-12 [place] [address] [facility] THYROID 1 [facility] STIMULATI NG MEDICALCE MEDICALCE HORMONE NTER NTER TSH COLLECTIO 58021 [facility] N VENOUS 1 SHASHANK SHASHANK BLOOD VENIPUNCT URE THERAPEUT 06103 [facility] IC 1 SHASHANK SHASHANK PROPHYLAC TIC/DX INJECTION SUBQ/IM URNLS DIP 36628 [facility] 1 SHASHANK SHASHANK STICK/TAB LET RGNT NON-AUTO W/O MICRSCP 4VHPV 42379 [facility] VACCINE 3 1 STEVEN SHASHANK DOSE SCHEDULE PHYSICIAN FOR IM S USE 4VHPV 53384 [facility] V[facility]INE 3 1 STEVEN MIN DOSE SCHEDULE PHYSICIAN FOR IM S USE COLLECTIO 35115 [facility] N VENOUS 1 STEVEN MIN BLOOD VENIPUNCT PHYSICIAN URE S URINE 57161 [facility] 1 STEVEN MIN TEST VISUAL PHYSICIAN COLOR S CMPRSN METHS GONADOTRO 07618 [facility] PIN 1 STEVEN STEVEN CHORIONIC MEDICALCE MEDICALCE QUANTITAT NTER NTER MELINA IADNA 67089 [facility] CHLAMYDIA 1 STEVEN STEVEN TRACHOMAT MEDICALCE MEDICALCE IS NTER NTER AMPLIFIED PROBE TQ CYTP C/V 32792 [facility] AUTO THIN 1 STEVEN STEVEN LYR PREPJ SCR MEDICALCE MEDICALCE MNL NTER NTER RESCR PHYS MOLEC 74883 [facility] ISOL/XTRJ 1 [facility] HP NUCLEIC MEDICALCE MEDICALCE ACID EA NTER NTER TYPE IADNA 31180 [facility] NEISSERIA 1 STEVEN STEVEN GONORRHOE MEDICALCE MEDICALCE AE NTER NTER AMPLIFIED PROBE TQ 4VHPV 75194 [facility]ACCINE 3 1 STEVEN SHASHANK DOSE SCHEDULE PHYSICIAN FOR IM S USE URINE [facility]68 [facility] SHE TEST VISUAL PHYSICIAN COLOR S CMPRSN METHS CULTURE 11518 [facility] BACTERIAL 0 [facility] QUANTTATI MEDICALCE MEDICALCE VE COLONY NTER NTER COUNT URINE GONADOTRO 28489 [facility] PIN 0 STEVEN STEVEN CHORIONIC MEDICALCE MEDICALCE QUANTITAT NTER NTER MELINA URINE 09537 MICHAEL 0 STEVEN SHE TEST VISUAL PHYSICIAN COLOR S CMPRSN METHS OPHTH 02104 MISA TAM, MEDICAL 0 STEPHON S SILVER M XM&EVAL COMPRE NEW PT 1/> VST FITTING 57678 CHRISTINA GREENE SPECTACLE 0 S XCPT APHAKIA MONOFOCAL SPHERE V2100 CHRISTINA GREENE SINGLE 0 VISION PLANO +/- 4.00 PER LENS OPHTH 51953 CHRISTINA VASQUEZ, MEDICAL 0 PETAR Lewis XM&EVAL COMPRHNSV ESTAB PT 1/> DETERMINA 08250 CHRISTINA VASQUEZ, TION 0 PETAR Leiws REFRACTIV E STATE FRAMES V2020 CHRISTINA JC CHRISTINA JC PURCHASES 0 INCISION 01204 PATIENT MICHAEL, & 9 FIRST LIDIA DRAINAGE PHYS ABSCESS SIMPLE/SI NGLE MCV4 [id number] PATIENT RONAK PITTMANWY 8 FIRST KEVIN G CONJ VACC PHYS GRPS [id number] IM USE Encounters Encounter Start End Date Code Location Performer Type Date OFFICE 46672 [facility] 7 STEVEN DICKENS T VISIT 15 PHYSICIAN MINUTES [facility] ST - [address] [facility] - 7 7 [facility] 03421 CHELSI RENUS[facility] DEPT 7 7 PHYSICIAN VISIT S, PLLC HIGH SEVERITY& THREAT FUNCJ EMERGENCY 73373 [facility] 7 7 [facility] T VISIT MODERATE SEVERITY OFFICE 74719 [facility] 7 STEVEN T VISIT 15 PHYSICIAN MINUTES [facility] - 6 6 [facility] INC T EMERGENCY 16079 [facility] 6 6 [facility] INC T VISIT LIMITED/M INOR PROB EMERGENCY 85580 CHELSI LANGSTON 6 6 [facility]IGH/URGE NT SEVERITY EMERGENCY 86568 CHELSI LANGSTON 6 6 PHYSICIAN CHUCK TODD S PLLC T VISIT MODERATE SEVERITY OFFICE 62358 [facility] 6 6 STEVEN FJ T VISIT 15 PHYSICIAN MINUTES [facility] ST - 6 6 STEVEN OUTPATIEN 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 OFFICE [facility] [facility] [place] [facility] 6 6 STEVEN INDY T VISIT 15 PHYSICIAN MINUTES [facility] ST - 6 6 STEVEN OUTPATIEN 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 [facility] YOEL - 5 5 [facility] INPATIENT INC OFFICE 94849 [facility] OUTPATIEN 5 5 PHYSICIAN ENA T VISIT S GROUP 15 MINUTES [facility] YOEL - 5 5 [facility] OUTPATIEN INC T OFFICE 96757 [facility] OUTPATIEN 5 5 PHYSICIAN ENA T VISIT S GROUP 15 MINUTES [facility] YOEL - 5 5 [facility] OUTPATIEN INC T OFFICE 868[address] [facility] [place] 5 5 STEVEN INDY T VISIT 15 PHYSICIAN MINUTES [facility] YOEL - 5 5 [facility] OUTPATIEN INC [facility] YOEL - 5 5 [facility] OUTPATIEN INC T OFFICE 66753 [facility] OUTPATIEN 5 5 PHYSICIAN ENA T VISIT S GROUP 15 MINUTES [facility] YOEL - 5 5 [facility] OUTPATIEN INC T OFFICE 22632 [facility] OUTPATIEN 5 5 PHYSICIAN ENA T VISIT S GROUP [address]ES [address] [facility] OUTPATIEN 5 5 STEVEN CHRISSIE NIEVES T VISIT 25 PHYSICIAN MINUTES [facility] YOEL - 5 5 [facility] OUTPATIEN INC T OFFICE 37381 [facility] JULIUS OUTPATIEN 4 4 PHYSICIAN ENA T VISIT S GROUP 15 MINUTES [facility] ST - 4 4 STEVEN OUTPATIEN 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 OFFICE 55412 ST [facility] OUTPATIEN 4 4 STEVEN SHASHANK T VISIT 15 PHYSICIAN MINUTES S OFFICE 72725 [facility]PAT[facility] 4 4 ENA ENA T VISIT 15 MINUTES [facility] - 4 4 [facility] INPATIENT INC OFFICE 18873 [facility] OUTPAT[facility] 4 4 ENA ENA T VISIT 15 MINUTES [facility] - 4 4 [facility] OUTPATIEN INC T OFFICE 77666 [facility] OUTPATIEN 4 4 ENA ENA T VISIT 15 MINUTES [facility] - 4 4 [facility] OUTPATIEN INC T OFFICE 61070 LILLIE MOREIRA OUTPATIEN 4 4 KENDELL KENDELL T VISIT 15 MINUTES OFFICE 60289 [facility]ES OUTPATIEN 4 4 JF JF T VISIT 15 MINUTES [facility] - 4 4 [facility] OUTPATIEN INC T OFFICE 65683 [facility] 4 4 ENA ENA T VISIT 5 MINUTES [facility] - 4 4 [facility] INC T OFFICE 03165 [facility] 4 4 ENA ENA T VISIT 15 MINUTES [facility]OSPITAL YEOL - 4 4 [facility] OUTPATIEN INC T OFFICE 25437 [facility] 4 4 ENA ENA T VISIT 15 MINUTES OFFICE 49339 [facility] 4 4 ENA ENA T VISIT 15 MINUTES OFFICE 83774 GINNY MOREIRA OUTPATIEN 3 3 LILLIE RDZ T VISIT 15 MINUTES [facility] - 3 3 [facility]PATI[facility] INC T OFFICE 04207 [facility] 3 3 ENA ENA T VISIT 15 MINUTES [facility] - 3 3 [facility] OUTPATI[facility] INC T OFFICE 05660 [facility] 3 3 ENA ENA T VISIT 15 MINUTES OFFICE 07394 [facility] 3 3 [facility] T VISIT CLIN[facility] OF 15 SAROJ MINUTES [facility] - 2 2 [facility] INPATIENT INC OFFICE 00126 [facility] OUTPATI[facility] 2 2 KENDELL KENDELL T VISIT 15 MINUTES OFFICE 03536 [facility] OUT[facility] 2 2 ENA ENA T VISIT 5 MINUTES OFFICE 64861 [facility] OUTPATIEN 2 2 KENDELL KENDELL T VISIT 15 MINUTES EMERGENCY 32587 [facility] 2 2 [facility] DEPARTMEN INC T VISIT HIGH/URGE NT SEVERITY [facility] - 2 2 [facility] OUTPATIEN INC [facility] YOEL - 2 2 [facility] OUTPATIEN INC T OFFICE 32913 [facility] OUTPATIEN 2 2 SHASHANK SHASHANK T VISIT 15 MINUTES OFFICE 78769 [facility] OUTPATI[facility] 2 2 JF JF T VISIT 15 MINUTES OFFICE 03719 [facility] OUTPATIEN 2 2 SHASHANK SHASHANK T VISIT 15 MINUTES OFFICE 31369 [facility] OUTPATIEN 2 2 JF JF T VISIT [address] - 1 1 STEVEN OUTPATIEN T MEDICALCE NTER OFFICE 02874 [facility] OUTPATIEN 1 1 SHASHANK SHASHANK T VISIT 15 MINUTES OFFICE 76532 [facility] OUTPATIEN 1 1 SHASHANK SHASHANK T VISIT [address] [facility] OUTPATIEN 1 1 STEVEN JF T VISIT 15 PHYSICIAN MINUTES S OFFICE 00937 [facility] PENDELETO OUTPATIEN 1 1 N CO N CO T [address] [facility]ENTER OFFICE [address] ST [facility] OUTPATIEN 1 1 STEVEN SHASHNAK T VISIT 15 PHYSICIAN MINUTES S OFFICE 72435 ST [facility]EL OUTPATIEN 1 1 STEVEN SHE T VISIT [address] [facility] [address] - 1 1 STEVEN OUTPATIEN T MEDICALCE [facility] PERIODIC [address] ST [facility] PREVENTIV 1 1 STEVEN SHASHANK E MED EST PATIENT PHYSICIAN 12-17YRPETER [facility] ST - 1 1 STEVEN OUTPATIEN T [facility] ST - 0 0 STEVEN OUTPATIEN T MEDICALCE [facility] OFFICE 62970 ST MICHAEL OUTPATIEN 0 0 STEVEN SHE T VISIT 25 PHYSICIAN MINUTES S OFFICE 29250 ST MICHAEL OUTPATIEN 0 0 STEVEN SHE T VISIT 25 PHYSICIAN MINUTES [facility] ST - 0 0 STEVEN OUTPATIEN T MEDICALCE NT OFFICE 28564 ST [facility], OUTPATIEN 0 0 STEVEN KEVIN G T VISIT 15 PHYSICIAN MINUTES S OFFICE [address]50 ST [facility] OUTPATIEN 0 0 STEVEN KEVIN G T VISIT 15 PHYSICIAN MINUTES S OFFICE 69527 [facility] OUT[facility] 0 0 MEDICAL MABEL T VISIT GROUP [address] [facility] OUTPATIEN 0 0 STEVEN KEVIN G T VISIT 15 PHYSICIAN MINUTES S OFFICE 23116 PATIENT KALFAS OUTPATIEN 9 9 FIRST SUSANNA C T VISIT PHYS 15 MINUTES OFFICE 15461 PATIENT LYNNETTE FUNES 9 9 FIRST MABEL T VISIT PHYS 15 MINUTES OFFICE 56713 PATIENT LYNNETTE MICHAEL 9 9 FIRST LIDIA T VISIT PHYS 25 MINUTES PERIODIC 08405 PATIENT LENY PITTMAN 8 8 FIRST KEVIN G E MED EST PHYS PATIENT 12-17YRS OFFICE 45032 PATIENT LYNNETTE FUNES 8 8 FIRST MABEL T VISIT PHYS 25 MINUTES OFFICE 13578 PATIENT LYNNETTE FUNES 8 8 FIRST MABEL T VISIT PHYS 15 MINUTES OFFICE 24198 PATIENT LYNNETTE PITTMAN 8 8 FIRST KEVIN G T VISIT PHYS 15 MINUTES
--- OUTSIDE RECORDS SUMMARY | 2017-03-25 05:32 | External Medical Summary Rpt | CCD ---
Author Author , STEPHANIE Organization STEPHANIE Address Unknown Phone [email or web address] Immunization Name Date Rout CVX Reac Dose Comm Prov Is Faci e tion ent ider Refu lity Give sed n Td 07-2 9 999 Hist H196 No H196 (aiden 6-20 oric lt), 05 al Info adso rmat rbed ion - Sour ce Unsp ecif ied DTaP 07-0 107 999 Hist H149 No H149 , UF 9- oric 97 al Info rmat ion - Sour ce Unsp ecif ied MMR 07-0 3 999 Hist H149 No H149 02-27 oric 97 al Info rmat ion - Sour ce Unsp ecif ied Nabeel 07-0 2 999 Hist H149 No H149 o-OP - oric V 97 al Info rmat ion - Sour ce Unsp ecif ied
--- OUTSIDE RECORDS SUMMARY | 2017-03-25 05:32 | External Medical Summary Rpt | CCD ---
Author Author , STEPHANIE Organization STEPHANIE Address Unknown Phone [email or web address] Immunization Name Date Rout CVX Reac Dose [...]
== END 2017-03-24 20:48 | disposition home or self-care (01) ==
LOC: UTC 18:45
PROVIDERS: Nurse Practitioner Family
DX: R10.11 Right upper quadrant pain (principal); Z88.0 Allergy status to penicillin; J45.909 Unspecified asthma, uncomplicated